=== PATIENT | male | born 1990 | race Caucasian/White ===

== ENCOUNTER 2017-01-09 15:19 | Inpatient (IN) | payer BC ==
[2017-01-09 20:00] VITALS: BMI 32.3
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
[2017-01-09] MEDS ORDERED: MAGNESIUM HYDROX 2400MG/30ML ORAL SUSPENSION 30 ML CUP PO PRN (21:31)
[2017-01-09] MEDS ORDERED: P-EPHED 60MG/TRIPROLIDI 2.5MG TABLET PO PRN (21:31)
[2017-01-09] MEDS ORDERED: MENTHOL/PHENOL 1 EACH UD MM PRN (21:31)
[2017-01-09] MEDS ORDERED: LOPERAMIDE HCL 2 MG CAPSULE PO PRN (21:31)
[2017-01-09] MEDS ORDERED: guaiFENesin/D-METHORPHAN HB 10 ML UNIT-DOSE CUPS PO PRN (21:31)
[2017-01-09] MEDS ORDERED: MAG HYDROX/AL HYDROX/SIMETH 30 ML UNIT-DOSE CUP PO PRN (21:31)
[2017-01-09] MEDS ORDERED: hydrOXYzine PAMOATE 50 MG CAPSULE (FP) PO PRN (21:31)
[2017-01-09] MEDS ORDERED: MAGNESIUM CITRATE 300 ML BOTTLE PO PRN (21:31)
[2017-01-09] MEDS ORDERED: NICOTINE POLACRILEX 2 MG GUM BC PRN (21:31)
[2017-01-09] MEDS ORDERED: TUBERCULIN PPD 5 TU/0.1ML VIAL ID ONE (22:42)
[2017-01-09] MEDS: diphenhydrAMINE HCL 50 MG CAPSULE PO PRN (23:07)
[2017-01-09] MEDS: THIAMINE HCL 100 MG TABLET (FP) PO SCH (23:07)
[2017-01-10 01:39] LABS: URINE APPEARANCE CLEAR; URINE BILIRUBIN NEGATIVE (NEGATIVE); URINE BLOOD NEGATIVE (NEGATIVE); URINE COLOR YELLOW; URINE GLUCOSE (UA) NEGATIVE (NEGATIVE); URINE KETONE NEGATIVE (NEGATIVE); URINE LEUK ESTERASE NEGATIVE (NEGATIVE); URINE NITRITE NEGATIVE (NEGATIVE); URINE UROBILINOGEN NEGATIVE mg/dL (0.2-1.0)
[2017-01-10 01:40] LABS: URINE PROTEIN 1+ (NEGATIVE)
[2017-01-10 01:48] LABS: URINE MUCUS RARE; URINE RBC 2 /hpf (0-3); URINE WBC <1 /hpf (3-5)
[2017-01-10] MEDS: ACETAMINOPHEN 325 MG TABLET (FP) PO PRN (06:12)
[2017-01-10] MEDS: METHADONE HCL 40 MG DISPERSABLE TABLET PO SCH (08:58)
[2017-01-10] MEDS: PRENATAL VITAMINS W/ FOLIC ACID TABLET (FP) PO SCH (09:00)
[2017-01-10] MEDS: NICOTINE 14 MG/24 HOURS TOPICAL PATCH TD SCH (09:01)
--- NOTE | 2017-01-10 09:53 | EKG ---
Test Reason : Blood Pressure : / mmHG Vent. Rate : 073 BPM Atrial Rate : 073 BPM P-R Int : 136 ms QRS Dur : 092 ms QT Int : 418 ms P-R-T Axes : 054 070 044 degrees QTc Int : 460 ms NORMAL SINUS RHYTHM NORMAL ECG NO PREVIOUS ECGS AVAILABLE Confirmed by MADELAINE BALDWIN, MUNA ([id number]) on 01/10/2017 9:53:30 AM Referred By: Confirmed By:MUNA BURKETT MD
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
--- NOTE | 2017-01-10 12:46 | PN ---
[facility] Progress Note Note: epigastric pain ekg nsr,normal ecg heart normal heart sound,s1,s2 lung cleat,no wheezing abdomen soft ,no distension no pain,no tenderness bowel suond active no calf tenderness impression epigastric pain r/o gerd treatment protonix 40 mgs po daily close moitoring
[2017-01-10] MEDS: IBUPROFEN 400 MG TABLET (FP) PO PRN (13:29)
[2017-01-10 13:35] LABS: MCH 29.4 pg (25.7-33.7); MCHC 33.3 g/dl (32.0-35.9); MEAN CELL VOLUME 88.2 fl (80-96); MEAN PLT VOLUME 9.3 fl (7.5-11.1); PLATELET COUNT 240 K/MM3 (134-434); RDW 12.9 % (11.9-15.9); WHITE BLOOD COUNT 6.1 K/mm3 (4.0-10.0)
[2017-01-10 14:20] LABS: ANION GAP 7 (8-16); CALCIUM 9.6 mg/dL (8.5-10.1); CO2 31 mmol/L (21-32); GLUCOSE,RANDOM 90 mg/dL (74-106)
[2017-01-10 14:23] LABS: ALK PHOS 91 U/L (45-117); BILIRUBIN,TOTAL 0.3 mg/dL (0.2-1.0); CREATININE 0.8 mg/dL (0.7-1.3); SGOT/AST 22 U/L (15-37); SGPT/ALT 34 U/L (12-78); TOT PROT 7.6 g/dl (6.4-8.2)
[2017-01-10] MEDS: PANTOPRAZOLE 40 MG TABLET (FP) PO SCH (14:29)
[2017-01-10] MEDS: risperiDONE 1 MG TABLET (FP) PO SCH ×2 (14:29→21:29)
[2017-01-10 14:33] LABS: HIV 1 & 2 AB NEGATIVE; HIV 1 AGp24 NEGATIVE
[2017-01-10] MEDS: DIVALPROEX NA *ER* EXTEND REL 500 MG TABLET.SA (FP) PO SCH (21:28)
[2017-01-10] MEDS: BENZTROPINE MESYLATE 1 MG TABLET (FP) PO SCH (21:28)
[2017-01-10] MEDS: THIAMINE HCL 100 MG TABLET (FP) PO SCH (21:29)
[2017-01-11] MEDS: risperiDONE 1 MG TABLET (FP) PO SCH ×3 (06:31→21:28)
[2017-01-11] MEDS: METHADONE HCL 40 MG DISPERSABLE TABLET PO SCH (06:31)
[2017-01-11] MEDS: PANTOPRAZOLE 40 MG TABLET (FP) PO SCH (10:16)
[2017-01-11] MEDS: BENZTROPINE MESYLATE 1 MG TABLET (FP) PO SCH (10:16)
[2017-01-11] MEDS: SERTRALINE HCL 25 MG TABLET (FP) PO SCH (10:16)
[2017-01-11] MEDS: PRENATAL VITAMINS W/ FOLIC ACID TABLET (FP) PO SCH (10:16)
[2017-01-11] MEDS: DEXTROAMPHETAMINE/AMPHETAMINE 10 MG CAP.ER.24H PO SCH (10:21)
[2017-01-11] MEDS: DIVALPROEX NA *ER* EXTEND REL 500 MG TABLET.SA (FP) PO SCH ×2 (10:21→21:28)
[2017-01-11] MEDS: NICOTINE 14 MG/24 HOURS TOPICAL PATCH TD SCH (10:22)
--- NOTE | 2017-01-11 13:43 | PN ---
[facility] Progress Note Note: patient requested to d/c gabby, reported he was taking it only when was on Haldol and was given scripts PRN will d/c
[2017-01-11] MEDS: THIAMINE HCL 100 MG TABLET (FP) PO SCH (21:29)
[2017-01-12] MEDS: METHADONE HCL 40 MG DISPERSABLE TABLET PO SCH (06:30)
[2017-01-12] MEDS: risperiDONE 1 MG TABLET (FP) PO SCH ×3 (06:31→21:29)
[2017-01-12] MEDS: PANTOPRAZOLE 40 MG TABLET (FP) PO SCH (10:16)
[2017-01-12] MEDS: SERTRALINE HCL 25 MG TABLET (FP) PO SCH (10:16)
[2017-01-12] MEDS: DIVALPROEX NA *ER* EXTEND REL 500 MG TABLET.SA (FP) PO SCH ×2 (10:16→21:29)
[2017-01-12] MEDS: PRENATAL VITAMINS W/ FOLIC ACID TABLET (FP) PO SCH (10:16)
[2017-01-12] MEDS: NICOTINE 14 MG/24 HOURS TOPICAL PATCH TD SCH (10:17)
[2017-01-12] MEDS: DEXTROAMPHETAMINE/AMPHETAMINE 10 MG CAP.ER.24H PO SCH (10:18)
[2017-01-12] MEDS: LORATADINE 10 MG TABLET PO SCH (14:37)
[2017-01-12] MEDS: THIAMINE HCL 100 MG TABLET (FP) PO SCH (21:30)
[2017-01-13] MEDS: risperiDONE 1 MG TABLET (FP) PO SCH ×3 (06:53→21:27)
[2017-01-13] MEDS: PRENATAL VITAMINS W/ FOLIC ACID TABLET (FP) PO SCH (10:11)
[2017-01-13] MEDS: SERTRALINE HCL 25 MG TABLET (FP) PO SCH (10:11)
[2017-01-13] MEDS: PANTOPRAZOLE 40 MG TABLET (FP) PO SCH (10:11)
[2017-01-13] MEDS: LORATADINE 10 MG TABLET PO SCH (10:11)
[2017-01-13] MEDS: DEXTROAMPHETAMINE/AMPHETAMINE 10 MG CAP.ER.24H PO SCH (10:12)
[2017-01-13] MEDS: DIVALPROEX NA *ER* EXTEND REL 500 MG TABLET.SA (FP) PO SCH ×2 (10:12→21:28)
[2017-01-13] MEDS: METHADONE HCL 40 MG DISPERSABLE TABLET PO SCH (10:12)
[2017-01-13] MEDS: NICOTINE 21 MG/24 HOURS TOPICAL PATCH TD SCH (10:12)
[2017-01-13] MEDS: IBUPROFEN 400 MG TABLET (FP) PO PRN (10:15)
[2017-01-13] MEDS: NICOTINE POLACRILEX 4 MG GUM BUC PRN (15:52)
[2017-01-13] MEDS: THIAMINE HCL 100 MG TABLET (FP) PO SCH (21:27)
[2017-01-13] MEDS: diphenhydrAMINE HCL 50 MG CAPSULE PO PRN (21:28)
[2017-01-14] MEDS: risperiDONE 1 MG TABLET (FP) PO SCH ×3 (06:46→22:20)
[2017-01-14] MEDS: DEXTROAMPHETAMINE/AMPHETAMINE 10 MG CAP.ER.24H PO SCH (10:08)
[2017-01-14] MEDS: LORATADINE 10 MG TABLET PO SCH (10:08)
[2017-01-14] MEDS: PRENATAL VITAMINS W/ FOLIC ACID TABLET (FP) PO SCH (10:08)
[2017-01-14] MEDS: PANTOPRAZOLE 40 MG TABLET (FP) PO SCH (10:08)
[2017-01-14] MEDS: SERTRALINE HCL 25 MG TABLET (FP) PO SCH (10:09)
[2017-01-14] MEDS: NICOTINE 21 MG/24 HOURS TOPICAL PATCH TD SCH (10:09)
[2017-01-14] MEDS: DIVALPROEX NA *ER* EXTEND REL 500 MG TABLET.SA (FP) PO SCH ×2 (10:09→22:20)
[2017-01-14] MEDS: METHADONE HCL 40 MG DISPERSABLE TABLET PO SCH (10:10)
[2017-01-14] MEDS: THIAMINE HCL 100 MG TABLET (FP) PO SCH (22:20)
[2017-01-15] MEDS: risperiDONE 1 MG TABLET (FP) PO SCH ×3 (06:37→22:44)
[2017-01-15] MEDS: PRENATAL VITAMINS W/ FOLIC ACID TABLET (FP) PO SCH (10:08)
[2017-01-15] MEDS: PANTOPRAZOLE 40 MG TABLET (FP) PO SCH (10:08)
[2017-01-15] MEDS: SERTRALINE HCL 25 MG TABLET (FP) PO SCH (10:08)
[2017-01-15] MEDS: LORATADINE 10 MG TABLET PO SCH (10:09)
[2017-01-15] MEDS: DIVALPROEX NA *ER* EXTEND REL 500 MG TABLET.SA (FP) PO SCH ×2 (10:09→22:44)
[2017-01-15] MEDS: METHADONE HCL 40 MG DISPERSABLE TABLET PO SCH (10:09)
[2017-01-15] MEDS: NICOTINE 21 MG/24 HOURS TOPICAL PATCH TD SCH (10:11)
[2017-01-15] MEDS: DEXTROAMPHETAMINE/AMPHETAMINE 10 MG CAP.ER.24H PO SCH (10:12)
[2017-01-15] MEDS: THIAMINE HCL 100 MG TABLET (FP) PO SCH (22:44)
[2017-01-16] MEDS: risperiDONE 1 MG TABLET (FP) PO SCH ×3 (07:54→21:42)
[2017-01-16] MEDS: METHADONE HCL 40 MG DISPERSABLE TABLET PO SCH (10:05)
[2017-01-16] MEDS: DEXTROAMPHETAMINE/AMPHETAMINE 10 MG CAP.ER.24H PO SCH (10:07)
[2017-01-16] MEDS: PRENATAL VITAMINS W/ FOLIC ACID TABLET (FP) PO SCH (10:07)
[2017-01-16] MEDS: PANTOPRAZOLE 40 MG TABLET (FP) PO SCH (10:07)
[2017-01-16] MEDS: SERTRALINE HCL 25 MG TABLET (FP) PO SCH (10:07)
[2017-01-16] MEDS: LORATADINE 10 MG TABLET PO SCH (10:07)
[2017-01-16] MEDS: DIVALPROEX NA *ER* EXTEND REL 500 MG TABLET.SA (FP) PO SCH ×2 (10:07→21:42)
[2017-01-16] MEDS: NICOTINE 21 MG/24 HOURS TOPICAL PATCH TD SCH (10:08)
--- NOTE | 2017-01-16 13:13 | PN ---
[facility] Progress Note Note: patient reports abscess and painful cracked tooth, does not want to continue depakote which was prescribed by psychaitrist, has not had seizure x1 year. a/p : tooth infection, to discusse depakote with psychiatrist, needs to see dentist if pain not controlled. naprsyn, neurontin for pain atc, protonix fo stomach. risk of seziures discussed with patien tif he stops depakote agress to start neurontin and titirate dose.
[2017-01-16] MEDS ORDERED: AMOXICILLIN 500 MG CAPSULE (FP) PO ONE (13:33)
[2017-01-16] MEDS ORDERED: NAPROXEN 500 MG TABLET (FP) PO SCH (13:35)
[2017-01-16] MEDS: NICOTINE POLACRILEX 4 MG GUM BUC PRN (13:39)
[2017-01-16] MEDS ORDERED: GABAPENTIN 100 MG CAPSULE (FP) PO SCH (14:00)
[2017-01-16] MEDS: THIAMINE HCL 100 MG TABLET (FP) PO SCH (21:42)
[2017-01-16] MEDS ORDERED: AMOXICILLIN 500 MG CAPSULE (FP) PO SCH (22:00)
[2017-01-17] MEDS: risperiDONE 1 MG TABLET (FP) PO SCH ×3 (06:25→21:32)
[2017-01-17] MEDS: METHADONE HCL 40 MG DISPERSABLE TABLET PO SCH (09:56)
[2017-01-17] MEDS: LORATADINE 10 MG TABLET PO SCH (09:57)
[2017-01-17] MEDS: PANTOPRAZOLE 40 MG TABLET (FP) PO SCH (09:57)
[2017-01-17] MEDS: SERTRALINE HCL 25 MG TABLET (FP) PO SCH (09:57)
[2017-01-17] MEDS: PRENATAL VITAMINS W/ FOLIC ACID TABLET (FP) PO SCH (09:57)
[2017-01-17] MEDS: NICOTINE 21 MG/24 HOURS TOPICAL PATCH TD SCH (09:57)
[2017-01-17] MEDS: DIVALPROEX NA *ER* EXTEND REL 500 MG TABLET.SA (FP) PO SCH ×2 (09:57→21:32)
--- NOTE | 2017-01-17 11:31 | PN ---
[facility] Progress Note Note: no side-effects reported by patient from adderall, will r/n, continue to monitor progress.
[2017-01-17] MEDS: DEXTROAMPHETAMINE/AMPHETAMINE 10 MG CAP.ER.24H PO SCH (11:54)
[2017-01-17] MEDS: THIAMINE HCL 100 MG TABLET (FP) PO SCH (21:32)
[2017-01-18] MEDS: risperiDONE 1 MG TABLET (FP) PO SCH ×3 (06:45→22:49)
[2017-01-18] MEDS: PRENATAL VITAMINS W/ FOLIC ACID TABLET (FP) PO SCH (09:46)
[2017-01-18] MEDS: SERTRALINE HCL 25 MG TABLET (FP) PO SCH (09:46)
[2017-01-18] MEDS: METHADONE HCL 40 MG DISPERSABLE TABLET PO SCH (09:46)
[2017-01-18] MEDS: LORATADINE 10 MG TABLET PO SCH (09:46)
[2017-01-18] MEDS: PANTOPRAZOLE 40 MG TABLET (FP) PO SCH (09:46)
[2017-01-18] MEDS: DIVALPROEX NA *ER* EXTEND REL 500 MG TABLET.SA (FP) PO SCH ×2 (09:47→22:17)
[2017-01-18] MEDS: NICOTINE 21 MG/24 HOURS TOPICAL PATCH TD SCH (09:47)
[2017-01-18] MEDS: DEXTROAMPHETAMINE/AMPHETAMINE 10 MG CAP.ER.24H PO SCH (09:49)
[2017-01-18] MEDS ORDERED: DEXTROAMPHETAMINE/AMPHETAMINE 10 MG CAP.ER.24H PO SCH (10:00)
[2017-01-18] MEDS: THIAMINE HCL 100 MG TABLET (FP) PO SCH (23:10)
[2017-01-19] MEDS: risperiDONE 1 MG TABLET (FP) PO SCH ×3 (07:06→21:38)
[2017-01-19] MEDS: PRENATAL VITAMINS W/ FOLIC ACID TABLET (FP) PO SCH (10:08)
[2017-01-19] MEDS: PANTOPRAZOLE 40 MG TABLET (FP) PO SCH (10:08)
[2017-01-19] MEDS: NICOTINE 21 MG/24 HOURS TOPICAL PATCH TD SCH (10:08)
[2017-01-19] MEDS: SERTRALINE HCL 25 MG TABLET (FP) PO SCH (10:08)
[2017-01-19] MEDS: METHADONE HCL 40 MG DISPERSABLE TABLET PO SCH (10:08)
[2017-01-19] MEDS: LORATADINE 10 MG TABLET PO SCH (10:08)
[2017-01-19] MEDS: DIVALPROEX NA *ER* EXTEND REL 500 MG TABLET.SA (FP) PO SCH ×2 (10:09→21:38)
[2017-01-19] MEDS: DEXTROAMPHETAMINE/AMPHETAMINE 10 MG CAP.ER.24H PO SCH (10:09)
[2017-01-19] MEDS: THIAMINE HCL 100 MG TABLET (FP) PO SCH (21:38)
[2017-01-20] MEDS: risperiDONE 1 MG TABLET (FP) PO SCH ×3 (06:39→21:46)
[2017-01-20] MEDS: ACETAMINOPHEN 325 MG TABLET (FP) PO PRN (06:40)
[2017-01-20] MEDS: METHADONE HCL 40 MG DISPERSABLE TABLET PO SCH (10:06)
[2017-01-20] MEDS: PRENATAL VITAMINS W/ FOLIC ACID TABLET (FP) PO SCH (10:07)
[2017-01-20] MEDS: LORATADINE 10 MG TABLET PO SCH (10:07)
[2017-01-20] MEDS: SERTRALINE HCL 25 MG TABLET (FP) PO SCH (10:07)
[2017-01-20] MEDS: DIVALPROEX NA *ER* EXTEND REL 500 MG TABLET.SA (FP) PO SCH ×2 (10:07→21:46)
[2017-01-20] MEDS: DEXTROAMPHETAMINE/AMPHETAMINE 10 MG CAP.ER.24H PO SCH (10:07)
[2017-01-20] MEDS: PANTOPRAZOLE 40 MG TABLET (FP) PO SCH (10:07)
[2017-01-20] MEDS: NICOTINE 21 MG/24 HOURS TOPICAL PATCH TD SCH (10:08)
[2017-01-20] MEDS: THIAMINE HCL 100 MG TABLET (FP) PO SCH (21:46)
[2017-01-21] MEDS: risperiDONE 1 MG TABLET (FP) PO SCH ×3 (07:00→22:04)
[2017-01-21] MEDS: METHADONE HCL 40 MG DISPERSABLE TABLET PO SCH (10:07)
[2017-01-21] MEDS: DEXTROAMPHETAMINE/AMPHETAMINE 10 MG CAP.ER.24H PO SCH (10:08)
[2017-01-21] MEDS: PANTOPRAZOLE 40 MG TABLET (FP) PO SCH (10:08)
[2017-01-21] MEDS: PRENATAL VITAMINS W/ FOLIC ACID TABLET (FP) PO SCH (10:08)
[2017-01-21] MEDS: LORATADINE 10 MG TABLET PO SCH (10:08)
[2017-01-21] MEDS: SERTRALINE HCL 25 MG TABLET (FP) PO SCH (10:08)
[2017-01-21] MEDS: DIVALPROEX NA *ER* EXTEND REL 500 MG TABLET.SA (FP) PO SCH ×2 (10:09→22:04)
[2017-01-21] MEDS: NICOTINE 21 MG/24 HOURS TOPICAL PATCH TD SCH (10:09)
[2017-01-21] MEDS: THIAMINE HCL 100 MG TABLET (FP) PO SCH (22:05)
[2017-01-22] MEDS: risperiDONE 1 MG TABLET (FP) PO SCH ×3 (06:31→21:28)
[2017-01-22] MEDS: DIVALPROEX NA *ER* EXTEND REL 500 MG TABLET.SA (FP) PO SCH ×2 (10:03→21:28)
[2017-01-22] MEDS: METHADONE HCL 40 MG DISPERSABLE TABLET PO SCH (10:03)
[2017-01-22] MEDS: DEXTROAMPHETAMINE/AMPHETAMINE 10 MG CAP.ER.24H PO SCH (10:03)
[2017-01-22] MEDS: LORATADINE 10 MG TABLET PO SCH (10:03)
[2017-01-22] MEDS: SERTRALINE HCL 25 MG TABLET (FP) PO SCH (10:03)
[2017-01-22] MEDS: PANTOPRAZOLE 40 MG TABLET (FP) PO SCH (10:03)
[2017-01-22] MEDS: PRENATAL VITAMINS W/ FOLIC ACID TABLET (FP) PO SCH (10:04)
[2017-01-22] MEDS: NICOTINE 21 MG/24 HOURS TOPICAL PATCH TD SCH (10:04)
[2017-01-22] MEDS: THIAMINE HCL 100 MG TABLET (FP) PO SCH (21:28)
[2017-01-23] MEDS: risperiDONE 1 MG TABLET (FP) PO SCH ×3 (06:38→21:44)
[2017-01-23] MEDS: DIVALPROEX NA *ER* EXTEND REL 500 MG TABLET.SA (FP) PO SCH ×2 (10:24→21:44)
[2017-01-23] MEDS: PRENATAL VITAMINS W/ FOLIC ACID TABLET (FP) PO SCH (10:24)
[2017-01-23] MEDS: PANTOPRAZOLE 40 MG TABLET (FP) PO SCH (10:24)
[2017-01-23] MEDS: SERTRALINE HCL 25 MG TABLET (FP) PO SCH (10:25)
[2017-01-23] MEDS: LORATADINE 10 MG TABLET PO SCH (10:25)
[2017-01-23] MEDS: NICOTINE 21 MG/24 HOURS TOPICAL PATCH TD SCH (10:25)
[2017-01-23] MEDS: METHADONE HCL 40 MG DISPERSABLE TABLET PO SCH (10:25)
[2017-01-23] MEDS: DEXTROAMPHETAMINE/AMPHETAMINE 10 MG CAP.ER.24H PO SCH (10:26)
[2017-01-23] MEDS: THIAMINE HCL 100 MG TABLET (FP) PO SCH (21:44)
[2017-01-24] MEDS: ACETAMINOPHEN 325 MG TABLET (FP) PO PRN (06:18)
[2017-01-24] MEDS: risperiDONE 1 MG TABLET (FP) PO SCH ×3 (06:18→21:55)
[2017-01-24] MEDS: METHADONE HCL 40 MG DISPERSABLE TABLET PO SCH (10:15)
[2017-01-24] MEDS: NICOTINE 21 MG/24 HOURS TOPICAL PATCH TD SCH (10:17)
[2017-01-24] MEDS: DIVALPROEX NA *ER* EXTEND REL 500 MG TABLET.SA (FP) PO SCH ×2 (10:17→21:54)
[2017-01-24] MEDS: LORATADINE 10 MG TABLET PO SCH (10:17)
[2017-01-24] MEDS: SERTRALINE HCL 25 MG TABLET (FP) PO SCH (10:17)
[2017-01-24] MEDS: PANTOPRAZOLE 40 MG TABLET (FP) PO SCH (10:17)
[2017-01-24] MEDS: PRENATAL VITAMINS W/ FOLIC ACID TABLET (FP) PO SCH (10:17)
[2017-01-24] MEDS: DEXTROAMPHETAMINE/AMPHETAMINE 10 MG CAP.ER.24H PO SCH (10:18)
[2017-01-24] MEDS: THIAMINE HCL 100 MG TABLET (FP) PO SCH (21:55)
[2017-01-25] MEDS: risperiDONE 1 MG TABLET (FP) PO SCH ×3 (06:21→21:15)
[2017-01-25] MEDS: METHADONE HCL 40 MG DISPERSABLE TABLET PO SCH (10:02)
[2017-01-25] MEDS: DIVALPROEX NA *ER* EXTEND REL 500 MG TABLET.SA (FP) PO SCH ×2 (10:03→21:15)
[2017-01-25] MEDS: PRENATAL VITAMINS W/ FOLIC ACID TABLET (FP) PO SCH (10:04)
[2017-01-25] MEDS: LORATADINE 10 MG TABLET PO SCH (10:04)
[2017-01-25] MEDS: SERTRALINE HCL 25 MG TABLET (FP) PO SCH (10:04)
[2017-01-25] MEDS: PANTOPRAZOLE 40 MG TABLET (FP) PO SCH (10:04)
[2017-01-25] MEDS: DEXTROAMPHETAMINE/AMPHETAMINE 10 MG CAP.ER.24H PO SCH (10:05)
[2017-01-25] MEDS: NICOTINE 21 MG/24 HOURS TOPICAL PATCH TD SCH (10:06)
[2017-01-25] MEDS: THIAMINE HCL 100 MG TABLET (FP) PO SCH (21:15)
[2017-01-26] MEDS: risperiDONE 1 MG TABLET (FP) PO SCH ×3 (06:16→21:13)
[2017-01-26] MEDS: METHADONE HCL 40 MG DISPERSABLE TABLET PO SCH (09:49)
[2017-01-26] MEDS: PRENATAL VITAMINS W/ FOLIC ACID TABLET (FP) PO SCH (09:49)
[2017-01-26] MEDS: PANTOPRAZOLE 40 MG TABLET (FP) PO SCH (09:49)
[2017-01-26] MEDS: SERTRALINE HCL 25 MG TABLET (FP) PO SCH (09:49)
[2017-01-26] MEDS: LORATADINE 10 MG TABLET PO SCH (09:49)
[2017-01-26] MEDS: DEXTROAMPHETAMINE/AMPHETAMINE 10 MG CAP.ER.24H PO SCH (09:53)
[2017-01-26] MEDS: NICOTINE 21 MG/24 HOURS TOPICAL PATCH TD SCH (10:50)
[2017-01-26] MEDS: DIVALPROEX NA *ER* EXTEND REL 500 MG TABLET.SA (FP) PO SCH ×2 (10:50→21:14)
[2017-01-26] MEDS ORDERED: BENZTROPINE MESYLATE 1 MG TABLET (FP) PO ONE (14:35)
--- NOTE | 2017-01-26 14:38 | PN ---
Psychiatric Progress Note Vital Signs: Vital Signs Period Temp Pulse Resp BP Sys/Thomas Pulse Ox Last 24 Hr 97.5 F 69 16-20 134/79 Date of Session: 01/26/17 Chief Complaint:: progress update. HPI: Patient is addressing opioid, cocaine dependence comorbid PTSD, ADD, Schizoaffective Disorder. ROS: Seizure disorder medically managed. Current Medications: Active Medications Generic Name Dose Route Start Last Admin Trade Name Freq PRN Reason Stop Dose Admin Acetaminophen 650 mg 01/09/17 21:31 01/24/17 06:18 Tylenol - PO 650 mg Q4H PRN Administration PAIN Al Hydroxide/Mg Hydroxide 30 ml 01/09/17 21:31 01/10/17 09:25 Mylanta Oral Suspension - PO 30 ml Q6H PRN Administration DYSPEPSIA Amphetamine/Dextroamphetamine 10 mg 01/25/17 10:00 01/26/17 09:53 Adderall Xr - PO 02/01/17 09:59 10 mg DAILY MARIE Administration Benztropine Mesylate 0.5 mg 01/26/17 14:24 Cogentin - PO 01/26/17 14:25 ONCE ONE Diphenhydramine HCl 50 mg 01/09/17 21:31 01/13/17 21:28 Benadryl - PO 50 mg HSMR1 PRN Administration INSOMNIA Divalproex Sodium 500 mg 01/10/17 22:00 01/26/17 10:50 Depakote *Er* - PO Not Given BID MARIE Eucalyptus/Menthol/Phenol/Sorbitol 1 each 01/09/17 21:31 Cepastat Lozenge - MM Q4H PRN SORE THROAT Guaifenesin 10 ml 01/09/17 21:31 Robitussin Dm - PO Q6H PRN COUGH Hydroxyzine Pamoate 50 mg 01/09/17 21:31 Vistaril - PO Q4H PRN AGITATION Loperamide HCl 4 mg 01/09/17 21:31 Imodium - PO Q6H PRN DIARRHEA Loratadine 10 mg 01/12/17 11:30 01/26/17 09:49 Claritin - PO 10 mg DAILY MARIE Administration Magnesium Citrate 300 ml 01/09/17 21:31 Citroma - PO Q48H PRN CONSTIPATION Magnesium Hydroxide 30 ml 01/09/17 21:31 Milk Of Magnesia - PO DAILY PRN CONSTIPATION Methadone HCl 80 mg 01/16/17 10:00 01/26/17 09:49 Dolophine - PO 80 mg DAILY MARIE Administration Nicotine 21 mg 01/12/17 11:27 01/26/17 10:50 Nicoderm Patch - TD 21 mg DAILY MARIE Administration Nicotine Polacrilex 4 mg 01/12/17 11:27 01/16/17 13:39 Nicorette Gum - BUC 4 mg Q2H PRN Administration NICOTINE REPLACEMENT RX Pantoprazole Sodium 40 mg 01/10/17 13:00 01/26/17 09:49 Protonix - PO 40 mg DAILY MARIE Administration Multivit/Folic Acid/Iron 1 tab 01/10/17 10:00 01/26/17 09:49 Vitamins (Sjr) - PO 1 tab DAILY MARIE Administration Risperidone 1 mg 01/26/17 22:00 Risperdal - PO BID MARIE Sertraline HCl 25 mg 01/11/17 10:00 01/26/17 09:49 Zoloft - PO 25 mg DAILY MARIE Administration Thiamine HCl 100 mg 01/09/17 22:00 01/25/17 21:15 Vitamin B1 - PO Not Given HS MARIE Current Side Effect: Yes (restless) Lab tests ordered: No Lab tests reviewed: Yes Provider note:: Patient reports that he is not taking Risperdal 3 times a day as was directed and only 2 times, he reports he restless, having muscualr tension on his shoulders and legs and anxious when as soon as he takes am pills , medications reviewed with the patient, will add cogentin 0.5 mg po stat, and bid, decrease risperdal to 1 mg po bid, psychoeducation and supports provided, continue to monitor progress. Total face to face time:: 25 Mental Status Exam - Mental Status Exam Alert and Oriented to: Time, Place, Person Cognitive Function: Good Patient Appearance: Well Groomed Mood: Anxious Affect: Mood Congruent Patient Behavior: Restless, Cooperative Speech Pattern: Appropriate Voice Loudness: Normal Thought Process: Goal Oriented Thought Disorder: Not Present Hallucinations: Denies Suicidal Ideation: Denies Homicidal Ideation: Denies Insight/Judgement: Fair Sleep: Fair Appetite: Fair Muscle strength/Tone: Normal Gait/Station: Normal Psychiatric Treatment Plan - Problem List (1) Cocaine dependence Current Visit: Yes Qualifiers: Substance use status: uncomplicated Qualified Code(s): F14.20 - Cocaine dependence, uncomplicated; F14.20 - Cocaine dependence, uncomplicated; F14.20 - Cocaine dependence, uncomplicated (2) Opioid dependence on agonist therapy Current Visit: Yes (3) ADHD (attention deficit hyperactivity disorder) Current Visit: No (4) PTSD (post-traumatic stress disorder) Current Visit: No (5) Schizoaffective disorder Current Visit: No (6) Seizure disorder Current Visit: No (7) Epileptic Current Visit: No Qualifiers: Epilepsy type: unspecified (8) Sedative/hypnotic withdrawal without complication Current Visit: Yes
[2017-01-26] MEDS: THIAMINE HCL 100 MG TABLET (FP) PO SCH (21:14)
[2017-01-26] MEDS: BENZTROPINE MESYLATE 1 MG TABLET (FP) PO SCH (21:14)
[2017-01-27] MEDS: METHADONE HCL 40 MG DISPERSABLE TABLET PO SCH (10:19)
[2017-01-27] MEDS: PANTOPRAZOLE 40 MG TABLET (FP) PO SCH (10:20)
[2017-01-27] MEDS: PRENATAL VITAMINS W/ FOLIC ACID TABLET (FP) PO SCH (10:20)
[2017-01-27] MEDS: NICOTINE 21 MG/24 HOURS TOPICAL PATCH TD SCH (10:20)
[2017-01-27] MEDS: BENZTROPINE MESYLATE 1 MG TABLET (FP) PO SCH ×2 (10:20→21:30)
[2017-01-27] MEDS: DEXTROAMPHETAMINE/AMPHETAMINE 10 MG CAP.ER.24H PO SCH (10:20)
[2017-01-27] MEDS: SERTRALINE HCL 25 MG TABLET (FP) PO SCH (10:20)
[2017-01-27] MEDS: risperiDONE 1 MG TABLET (FP) PO SCH ×2 (10:20→21:30)
[2017-01-27] MEDS: DIVALPROEX NA *ER* EXTEND REL 500 MG TABLET.SA (FP) PO SCH ×2 (10:21→21:30)
[2017-01-27] MEDS: LORATADINE 10 MG TABLET PO SCH (10:21)
[2017-01-27] MEDS: THIAMINE HCL 100 MG TABLET (FP) PO SCH (21:31)
[2017-01-28] MEDS: risperiDONE 1 MG TABLET (FP) PO SCH ×2 (10:08→21:01)
[2017-01-28] MEDS: PANTOPRAZOLE 40 MG TABLET (FP) PO SCH (10:08)
[2017-01-28] MEDS: DIVALPROEX NA *ER* EXTEND REL 500 MG TABLET.SA (FP) PO SCH ×2 (10:09→21:01)
[2017-01-28] MEDS: NICOTINE 21 MG/24 HOURS TOPICAL PATCH TD SCH (10:09)
[2017-01-28] MEDS: BENZTROPINE MESYLATE 1 MG TABLET (FP) PO SCH ×2 (10:09→21:01)
[2017-01-28] MEDS: SERTRALINE HCL 25 MG TABLET (FP) PO SCH (10:09)
[2017-01-28] MEDS: LORATADINE 10 MG TABLET PO SCH (10:09)
[2017-01-28] MEDS: DEXTROAMPHETAMINE/AMPHETAMINE 10 MG CAP.ER.24H PO SCH (10:09)
[2017-01-28] MEDS: METHADONE HCL 40 MG DISPERSABLE TABLET PO SCH (10:09)
[2017-01-28] MEDS: PRENATAL VITAMINS W/ FOLIC ACID TABLET (FP) PO SCH (10:10)
[2017-01-28] MEDS: THIAMINE HCL 100 MG TABLET (FP) PO SCH (21:01)
[2017-01-29 06:41] VITALS: BP 115/75; PULSE 65; TEMP 97.9
[2017-01-29] MEDS: SERTRALINE HCL 25 MG TABLET (FP) PO SCH (09:41)
[2017-01-29] MEDS: PANTOPRAZOLE 40 MG TABLET (FP) PO SCH (09:41)
[2017-01-29] MEDS: PRENATAL VITAMINS W/ FOLIC ACID TABLET (FP) PO SCH (09:41)
[2017-01-29] MEDS: METHADONE HCL 40 MG DISPERSABLE TABLET PO SCH (09:41)
[2017-01-29] MEDS: LORATADINE 10 MG TABLET PO SCH (09:41)
[2017-01-29] MEDS: risperiDONE 1 MG TABLET (FP) PO SCH (09:41)
[2017-01-29] MEDS: BENZTROPINE MESYLATE 1 MG TABLET (FP) PO SCH (09:41)
[2017-01-29] MEDS: DEXTROAMPHETAMINE/AMPHETAMINE 10 MG CAP.ER.24H PO SCH (09:41)
[2017-01-29] MEDS: NICOTINE 21 MG/24 HOURS TOPICAL PATCH TD SCH (09:42)
[2017-01-29] MEDS: DIVALPROEX NA *ER* EXTEND REL 500 MG TABLET.SA (FP) PO SCH (09:42)
--- NOTE | 2017-01-29 10:00 | PN ---
Psychiatric Progress Note Vital Signs: Vital Signs Period Temp Pulse Resp BP Sys/Thomas Pulse Ox Last 24 Hr 97.9 F 65 16-20 115/75 Date of Session: 01/29/17 Chief Complaint:: discharge visit HPI: Patient is addressing opioid, cocaine dependence comorbid PTSD, ADD, Schizoaffective Disorder. ROS: Seizure disorder medically managed. Current Medications: Active Medications Generic Name Dose Route Start Last Admin Trade Name Freq PRN Reason Stop Dose Admin Acetaminophen 650 mg 01/09/17 21:31 01/24/17 06:18 Tylenol - PO 650 mg Q4H PRN Administration PAIN Al Hydroxide/Mg Hydroxide 30 ml 01/09/17 21:31 01/10/17 09:25 Mylanta Oral Suspension - PO 30 ml Q6H PRN Administration DYSPEPSIA Amphetamine/Dextroamphetamine 10 mg 01/25/17 10:00 01/29/17 09:41 Adderall Xr - PO 02/01/17 09:59 10 mg DAILY MARIE Administration Benztropine Mesylate 0.5 mg 01/26/17 22:00 01/29/17 09:41 Cogentin - PO 0.5 mg BID MARIE Administration Diphenhydramine HCl 50 mg 01/09/17 21:31 01/13/17 21:28 Benadryl - PO 50 mg HSMR1 PRN Administration INSOMNIA Divalproex Sodium 500 mg 01/10/17 22:00 01/29/17 09:42 Depakote *Er* - PO Not Given BID MARIE Eucalyptus/Menthol/Phenol/Sorbitol 1 each 01/09/17 21:31 Cepastat Lozenge - MM Q4H PRN SORE THROAT Guaifenesin 10 ml 01/09/17 21:31 Robitussin Dm - PO Q6H PRN COUGH Hydroxyzine Pamoate 50 mg 01/09/17 21:31 01/28/17 22:40 Vistaril - PO 50 mg Q4H PRN Administration AGITATION Loperamide HCl 4 mg 01/09/17 21:31 Imodium - PO Q6H PRN DIARRHEA Loratadine 10 mg 01/12/17 11:30 01/29/17 09:41 Claritin - PO 10 mg DAILY MARIE Administration Magnesium Citrate 300 ml 01/09/17 21:31 Citroma - PO Q48H PRN CONSTIPATION Magnesium Hydroxide 30 ml 01/09/17 21:31 Milk Of Magnesia - PO DAILY PRN CONSTIPATION Methadone HCl 80 mg 01/16/17 10:00 01/29/17 09:41 Dolophine - PO 80 mg DAILY MARIE Administration Nicotine 21 mg 01/12/17 11:27 01/29/17 09:42 Nicoderm Patch - TD Not Given DAILY MARIE Nicotine Polacrilex 4 mg 01/12/17 11:27 01/16/17 13:39 Nicorette Gum - BUC 4 mg Q2H PRN Administration NICOTINE REPLACEMENT RX Pantoprazole Sodium 40 mg 01/10/17 13:00 01/29/17 09:41 Protonix - PO 40 mg DAILY MARIE Administration Multivit/Folic Acid/Iron 1 tab 01/10/17 10:00 01/29/17 09:41 Vitamins (Sjr) - PO 1 tab DAILY MARIE Administration Risperidone 1 mg 01/26/17 22:00 01/29/17 09:41 Risperdal - PO 1 mg BID MARIE Administration Sertraline HCl 25 mg 01/11/17 10:00 01/29/17 09:41 Zoloft - PO 25 mg DAILY MARIE Administration Thiamine HCl 100 mg 01/09/17 22:00 01/28/17 21:01 Vitamin B1 - PO Not Given HS MARIE Current Side Effect: No Lab tests ordered: No Lab tests reviewed: Yes Provider note:: Patient has completed today his treatment and met his goals, will continue to address his issues at [facility]/ [address], he gained insights into importance of chaning attitudes for the utilization of supports to prevent relapses.Patient respondede well to medication management, patient reports that Cogentin is effective, scripts to Risperdal, Cogentin and Zoloft provided, patient is stable for discharge. Total face to face time:: 20 Mental Status Exam - Mental Status Exam Alert and Oriented to: Time, Place, Person Cognitive Function: Good Patient Appearance: Well Groomed Mood: Hopeful Affect: Appropriate, Mood Congruent Patient Behavior: Appropriate, Cooperative Speech Pattern: Clear, Appropriate Voice Loudness: Normal Thought Process: Intact, Goal Oriented Thought Disorder: Not Present Hallucinations: Denies Suicidal Ideation: Denies Homicidal Ideation: Denies Insight/Judgement: Fair Sleep: Fair Appetite: Good Muscle strength/Tone: Normal Gait/Station: Normal Psychiatric Treatment Plan - Problem List (1) Cocaine dependence Current Visit: Yes Qualifiers: Substance use status: uncomplicated Qualified Code(s): F14.20 - Cocaine dependence, uncomplicated; F14.20 - Cocaine dependence, uncomplicated; F14.20 - Cocaine dependence, uncomplicated (2) Opioid dependence on agonist therapy Current Visit: Yes (3) ADHD (attention deficit hyperactivity disorder) Current Visit: No (4) PTSD (post-traumatic stress disorder) Current Visit: No (5) Schizoaffective disorder Current Visit: No (6) Seizure disorder Current Visit: No (7) Epileptic Current Visit: No Qualifiers: Epilepsy type: unspecified (8) Sedative/hypnotic withdrawal without complication Current Visit: Yes
== END 2017-01-29 10:50 | disposition home or self-care (01) | DRG 772 ==
LOC: YASAS 15:19 → Y5N 21:52
PROVIDERS: ADMIT Psychiatry & Neurology Psychiatry; ATTEND Psychiatry & Neurology Psychiatry
PROC: HZ42ZZZ Group Counseling for Substance Abuse Treatment, Cognitive-Behavioral (ICD-10-PCS; principal; 2017-01-09)
DX: F13.20 Sedative, hypnotic or anxiolytic dependence, uncomplicated (principal); F11.20 Opioid dependence, uncomplicated; F14.20 Cocaine dependence, uncomplicated; F17.210 Nicotine dependence, cigarettes, uncomplicated; F90.9 Attention-deficit hyperactivity disorder, unspecified type; F43.10 Post-traumatic stress disorder, unspecified; F25.9 Schizoaffective disorder, unspecified; G40.909 Epilepsy, unspecified, not intractable, without status epilepticus; R10.13 Epigastric pain; Z91.013 Allergy to seafood; Z88.8 Allergy status to other drugs, medicaments and biological substances
CPT/HCPCS: 36415; 80053; 81003; 81015; 85027; 86593; 86803; 87389; 93005; 93010; J2794

== ENCOUNTER 2017-09-11 15:10 | Inpatient (IN) | payer BC ==
[2017-09-11 18:39] VITALS: BMI 29.1
--- NOTE | 2017-09-11 20:59 | HP ---
CIWA Score - CIWA Score Nausea/Vomitin-Mild Nausea/No Vomiting Muscle Tremors: 3 Anxiety: 4-Mod. Anxious/Guarded Agitation: 4-Moderately Restless Paroxysmal Sweats: 3 Orientation: 3-Disoriented Date>2 days Tacttile Disturbances: 0-None Auditory Disturbances: 0-None Visual Disturbances: 0-None Headache: 4-Moderately Severe CIWA-Ar Total Score: 22 Admission ROS S - HPI Chief Complaint: C/O WITHDRAWAL SX'S R/T HEROIN AND XANAX DEPENDENCE. Allergies/Adverse Reactions: Allergies Allergy/AdvReac Type Severity Reaction Status Date / Time Barbiturates Allergy Severe Swelling Verified 01/09/17 21:54 Fish Containing Products Allergy Severe Hives Verified 01/09/17 21:54 History of Present Illness: 26 Y.O. MALE WITH LONG HX/O POLYSUBSTANCE ABUSE HERE FOR XANAX DETOX. CLIENT IS PRESENTLY ON MMTP AT [facility] TODAY 80 MG. PENDING VERIFICATION. CLIENT IS KNOWN TO THIS PROGRAM. REFERRED TODAY BY HIS OTP COUNSELOR. REPORTS LONGEST CLEAN TIME 1 YEARS SELF SUSTAINED. DENIES PAST PRESENT SI/HI AND A/V HALLUCINATIONS. PMHX: SEIZURE D/O MENTAL HEALTH: PTSD, ADHD, BIPOLAR, ANXIETY AND DEPRESSION. Exam Limitations: No Limitations - Ebola screening Have you traveled outside of the country in the last 21 days: No Have you had contact with anyone from an Ebola affected area: No Have you been sick,other than usual withdrawal symptoms: No Do you have a fever: No - Review of Systems Constitutional: Chills, Loss of Appetite, Malaise, Night Sweats, Changes in sleep EENT: reports: Nose Congestion (WITH RUNNY NOSE), Other (TOOTH ACHE) Respiratory: reports: No Symptoms reported Cardiac: reports: No Symptoms Reported GI: reports: Nausea, Poor Appetite : reports: No Symptoms Reported Musculoskeletal: reports: No Symptoms Reported Integumentary: reports: No Symptoms Reported Neuro: reports: Seizure (6 MONTHS AGO;) Endocrine: reports: No Symptoms Reported Hematology: reports: No Symptoms Reported Psychiatric: reports: Anxious, Depressed Other Systems: Reviewed and Negative Patient History - Patient Medical History Hx Anemia: No Hx Asthma: No Hx Chronic Obstructive Pulmonary Disease (COPD): No Hx Cancer: No Hx Cardiac Disorders: No Hx Congestive Heart Failure: No Hx Hypertension: No Hx Hypercholesterolemia: No Hx Pacemaker: No HX Cerebrovascular Accident: No Hx Seizures: Yes (LAST EPISODE 6 MONTHS AGO) Hx Dementia: No Hx Diabetes: No Hx Gastrointestinal Disorders: No Hx Liver Disease: No Hx Genitourinary Disorders: No Hx Sexually Transmitted Disorders: No Hx Renal Disease (ESRD): No Hx Thyroid Disease: No Hx Human Immunodeficiency Virus (HIV): No Hx Hepatitis C: No (neg) Hx Depression: Yes Hx Suicide Attempt: No Hx Bipolar Disorder: Yes Hx Schizophrenia: Yes Other Medical History: ANXIETY - Patient Surgical History Past Surgical History: No Hx Neurologic Surgery: No Hx Cataract Extraction: No Hx Cardiac Surgery: No Hx Lung Surgery: No Hx Breast Surgery: No Hx Breast Biopsy: No Hx Abdominal Surgery: No Hx Appendectomy: No Hx Cholecystectomy: No Hx Genitourinary Surgery: No Hx Section: No Hx Orthopedic Surgery: No Anesthesia Reaction: No - PPD History Previous Implant?: Yes Documented Results: Negative w/proof Implanted On Prior [facility] Admission?: Yes Date: 01/11/17 Results: 0MM PPD to be Administered?: No - Smoking Cessation Smoking history: Current every day smoker Have you smoked in the past 12 months: Yes Aproximately how many cigarettes per day: 10 Cigars Per Day: 0 Hx Chewing Tobacco Use: No Initiated information on smoking cessation: Yes 'Breaking Loose' booklet given: 09/11/17 - Substance & Tx. History Hx Alcohol Use: No Hx Substance Use: Yes Substance Use Type: Cocaine, Heroin (ON MMTP 80 MG), Tranquilizers (XANAX) Hx Substance Use Treatment: Yes ([facility]) - Substances Abused XANAX Route: Oral Frequency: Daily Amount used: 8MG Age of first use: 11 Date of Last Use: 09/10/17 COCAINE Route: Smoking Frequency: Daily Amount used: $50 Age of first use: 18 Date of Last Use: 09/10/17 Family Disease History - Family Disease History Family Disease History: Diabetes: Mother (mental disorder), Heart Disease: Grandparent, CA: Grandparent, Other: Mother Admission Physical Exam BHS - Vital Signs Vital Signs: Vital Signs - 24 hr 09/11/17 18:37 Temperature 97.5 F L Pulse Rate 61 Respiratory 18 Rate Blood Pressure 122/72 - Physical General Appearance: Yes: Appropriately Dressed, Moderate Distress, Tremorous, Sweating, Anxious HEENTM: Yes: EOMI, Normocephalic, Normal Voice, MARIE, Pharynx Normal Respiratory: Yes: Chest Non-Tender, Lungs Clear, Normal Breath Sounds, No Respiratory Distress, No Accessory Muscle Use Neck: Yes: No masses,lesions,Nodules, Supple, Trachea in good position Breast: Yes: Other (GYNECOMASTIA) Cardiology: Yes: Regular Rhythm, Regular Rate, S1, S2 Abdominal: Yes: Normal Bowel Sounds, Non Tender, Soft, Protuberent Genitourinary: Yes: Within Normal Limits (NO C/O) Back: Yes: Normal Inspection Musculoskeletal: Yes: full range of Motion, Gait Steady Extremities: Yes: Normal Capillary Refill, Normal Range of Motion, Non-Tender, Tremors Neurological: Yes: Alert, Disoriented (DISORTIENTED TO DATE) Integumentary: Yes: Warm, Moist, Track [place] Lymphatic: Yes: Within Normal Limits - Diagnostic (1) Toothache Current Visit: Yes Status: Acute (2) ADHD (attention deficit hyperactivity disorder) Current Visit: Yes Status: Suspected (3) PTSD (post-traumatic stress disorder) Current Visit: Yes Status: Suspected (4) Schizoaffective disorder Current Visit: Yes Status: Suspected (5) Cocaine dependence Current Visit: Yes Status: Chronic Qualifiers: Substance use status: uncomplicated Qualified Code(s): F14.20 - Cocaine dependence, uncomplicated (6) Epileptic Current Visit: Yes Status: Suspected Qualifiers: Epilepsy type: unspecified (7) Nicotine dependence Current Visit: Yes Status: Chronic Qualifiers: Nicotine product type: cigarettes Substance use status: uncomplicated Qualified Code(s): F17.210 - Nicotine dependence, cigarettes, uncomplicated (8) Opioid dependence on agonist therapy Current Visit: Yes Status: Chronic (9) Sedative/hypnotic withdrawal without complication Current Visit: Yes Status: Acute Cleared for Admission S - Detox or Rehab [facility] Level of Care: Medically Managed Detox Regimen/Protocol: Valium Claeared for Rehab Admission: No [facility] Breath Alcohol Content Breath Alcohol Content: 0 Urine Drug Screen - Results Drug Screen Negative: No Urine Drug Screen Results: ANABEL-Cocaine, OPI-Opiates, BZO-Benzodiazepines, MTD- Methadone, TCA-Tricyclic Antidepress
[2017-09-11] MEDS ORDERED: MAG HYDROX/AL HYDROX/SIMETH 30 ML UNIT-DOSE CUP PO PRN (21:04)
[2017-09-11] MEDS ORDERED: MAGNESIUM HYDROX 2400MG/30ML ORAL SUSPENSION 30 ML CUP PO PRN (21:04)
[2017-09-11] MEDS ORDERED: MENTHOL/PHENOL 1 EACH UD MM PRN (21:04)
[2017-09-11] MEDS ORDERED: MAGNESIUM CITRATE 300 ML BOTTLE PO PRN (21:04)
[2017-09-11] MEDS ORDERED: IBUPROFEN 400 MG TABLET (FP) PO PRN ×2 (21:04→21:14)
[2017-09-11] MEDS ORDERED: diazePAM 5 MG TABLET PO ONE (21:04)
[2017-09-11] MEDS ORDERED: guaiFENesin/D-METHORPHAN HB 10 ML UNIT-DOSE CUPS PO PRN (21:04)
[2017-09-11] MEDS ORDERED: P-EPHED 60MG/TRIPROLIDI 2.5MG TABLET PO PRN (21:04)
[2017-09-11] MEDS ORDERED: NICOTINE POLACRILEX 2 MG GUM BUC PRN (21:04)
[2017-09-11] MEDS ORDERED: LOPERAMIDE HCL 2 MG CAPSULE PO PRN (21:04)
[2017-09-11] MEDS ORDERED: LIDOCAINE VISCOUS 2% ORAL/TOP 20 ML UNIT-DOSE CUP MM PRN (21:13)
[2017-09-11] MEDS ORDERED: MELATONIN 5 MG TABLETS PO PRN (22:00)
[2017-09-12 06:55] LABS: URINE APPEARANCE CLEAR; URINE COLOR AMBER; URINE GLUCOSE (UA) NEGATIVE (NEGATIVE); URINE KETONE NEGATIVE (NEGATIVE); URINE LEUK ESTERASE TRACE (NEGATIVE); URINE NITRITE NEGATIVE (NEGATIVE); URINE UROBILINOGEN 4.0 E.U/dl mg/dL (0.2-1.0)
[2017-09-12] MEDS: diazePAM 5 MG TABLET PO SCH ×3 (06:59→22:12)
[2017-09-12] MEDS: THIAMINE HCL 100 MG TABLET (FP) PO SCH ×2 (06:59→22:12)
[2017-09-12 07:16] LABS: URINE PROTEIN 1+ (NEGATIVE)
[2017-09-12 07:26] LABS: URINE MUCUS RARE
[2017-09-12] MEDS: diazePAM 5 MG TABLET PO PRN ×2 (09:20→17:28)
[2017-09-12] MEDS: METHADONE HCL 40 MG DISPERSABLE TABLET PO SCH (09:49)
[2017-09-12] MEDS: PRENATAL VITAMINS W/ FOLIC ACID TABLET (FP) PO SCH (09:49)
[2017-09-12 10:32] LABS: HEMOGLOBIN 13.1 GM/dL (11.7-16.9); MCH 29.8 pg (25.7-33.7); MCHC 33.7 g/dl (32.0-35.9); MEAN CELL VOLUME 88.5 fl (80-96); MEAN PLT VOLUME 9.2 fl (7.5-11.1); PLATELET COUNT 218 K/MM3 (134-434); RDW 13.2 % (11.9-15.9); WHITE BLOOD COUNT 6.3 K/mm3 (4.0-10.0)
[2017-09-12 10:51] LABS: CHLORIDE 107 mmol/L (98-107); POTASSIUM 4.3 mmol/L (3.5-5.1); SODIUM 144 mmol/L (136-145)
[2017-09-12] MEDS: NICOTINE 21 MG/24 HOURS TOPICAL PATCH TD SCH (11:05)
[2017-09-12 12:26] LABS: ALBUMIN 3.2 g/dl (3.4-5.0); ALK PHOS 85 U/L (45-117); ANION GAP 5 (8-16); BILIRUBIN,TOTAL 0.1 mg/dL (0.2-1.0); BLOOD UREA NITROGEN 15 mg/dL (7-18); CALCIUM 8.3 mg/dL (8.5-10.1); CO2 32 mmol/L (21-32); CREATININE 0.8 mg/dL (0.7-1.3); GLUCOSE,RANDOM 88 mg/dL (74-106); SGOT/AST 10 U/L (15-37); TOT PROT 6.4 g/dl (6.4-8.2)
[2017-09-12 13:30] LABS: SGPT/ALT 17 U/L (12-78)
--- NOTE | 2017-09-12 13:30 | EKG ---
Test Reason : Blood Pressure : / mmHG Vent. Rate : 058 BPM Atrial Rate : 058 BPM P-R Int : 132 ms QRS Dur : 100 ms QT Int : 426 ms P-R-T Axes : 039 056 037 degrees QTc Int : 418 ms SINUS BRADYCARDIA OTHERWISE NORMAL ECG WHEN COMPARED WITH ECG OF 09-JAN-2017 22:36, NO SIGNIFICANT CHANGE WAS FOUND Confirmed by MUNA BURKETT MD ([id number]) on 09/12/2017 1:30:12 PM Referred By: Confirmed By:MUNA BURKETT MD
--- NOTE | 2017-09-12 13:44 | PN ---
S CIWA - CIWA Score Nausea/Vomitin Muscle Tremors: 3 Anxiety: 4-Mod. Anxious/Guarded Agitation: 2 Paroxysmal Sweats: 3 Orientation: 2-Disoriented Date<2 days Tacttile Disturbances: 0-None Auditory Disturbances: 2-Mild Harshness/Frighten Visual Disturbances: 0-None Headache: 0-None Present CIWA-Ar Total Score: 19 BHS Progress Note (SOAP) Subjective: Sweating, Chills, Nausea, Anxious, Stomach Cramping. Objective: PATIENT A & O X 2 (UNCERTAIN ABOUT CURRENT DAY / DATE). PATIENT OBSERVED AMBULATING ON UNIT. NO ACUTE DISTRESS. 09/12/17 13:41 Laboratory Tests 09/11/17 09/12/17 09/12/17 23:25 07:30 07:30 WBC 6.3 RBC 4.40 Hgb 13.1 D Hct 39.0 MCV 88.5 MCH 29.8 MCHC 33.7 RDW 13.2 Plt Count 218 MPV 9.2 Sodium 144 Potassium 4.3 Chloride 107 Carbon Dioxide 32 Anion Gap 5 L BUN 15 Creatinine 0.8 Creat Clearance w eGFR > 60 Random Glucose 88 Calcium 8.3 L Total Bilirubin 0.1 L D AST 10 L D ALT 17 D Alkaline Phosphatase 85 Total Protein 6.4 Albumin 3.2 L Urine Color Birgit Urine Appearance Clear Urine pH 6.0 Ur Specific [place] 1.030 Urine Protein 1+ H Urine Glucose (UA) Negative Urine Ketones Negative Urine Blood Negative Urine Nitrite Negative Urine Bilirubin 2.0 Urine Urobilinogen 4.0 e.u/dl Ur Leukocyte Esterase Trace Urine WBC (Auto) 2 Urine RBC (Auto) 5 Urine Mucus Rare HIV 1&2 Antibody Screen HIV P24 Antigen 09/12/17 07:30 WBC RBC Hgb Hct MCV MCH MCHC RDW Plt Count MPV Sodium Potassium Chloride Carbon Dioxide Anion Gap BUN Creatinine Creat Clearance w eGFR Random Glucose Calcium Total Bilirubin AST ALT Alkaline Phosphatase Total Protein Albumin Urine Color Urine Appearance Urine pH Ur Specific [place] Urine Protein Urine Glucose (UA) Urine Ketones Urine Blood Urine Nitrite Urine Bilirubin Urine Urobilinogen Ur Leukocyte Esterase Urine WBC (Auto) Urine RBC (Auto) Urine Mucus HIV 1&2 Antibody Screen Negative HIV P24 Antigen Negative LABS NOTED. RPR RESULT PENDING. 09/12/17 13:43 Assessment: 09/12/17 13:42 WITHDRAWAL SYMPTOMS. Plan: CONTINUE DETOX.
--- NOTE | 2017-09-12 16:40 | CONSULT ---
[facility] Psychiatric Consult - Data Date of interview: 09/12/17 Admission source: [facility] Identifying data: One of several admissions to [facility] for this 26 y/o male from [place] ancestry, seeking detox treatment on , for heroin,xanax,phencyclidine and cocaine dependence.Patient is single without dependents,hom[facility] ([facility]),unemployed and supported on welfare. Substance Abuse History: Confirmed by the patient in this interview.Smoking history: Current every day smoker. Have you smoked in the past 12 months: Yes. Aproximately how many cigarettes per day: 10. Cigars Per Day: 0. Hx Chewing Tobacco Use: No. Initiated information on smoking cessation: Yes. 'Breaking Loose' booklet given: 09/11/17. - Substance & Tx. History. Hx Alcohol Use: No. Hx Substance Use: Yes. Substance Use Type: Cocaine, Heroin (ON MMTP 80 MG) , Tranquilizers (XANAX). Hx Substance Use Treatment: Yes ([facility] - Substances Abused. XANAX. Route: Oral. Frequency: Daily. Amount used: 8MG. Age of first use: 11. Date of Last Use: 09/10/17. COCAINE. Route: Smoking. Frequency: Daily. Amount used: $50. Age of first use: 18. Date of Last Use: 09/10/17 Medical History: Remarkable for seizure disorder.Patient is maintained on depakote. Psychiatric History: Onset of psychiatric disturbances : age 16.Diagnosed with ADHD,Schizoaffective Disorder and PTSD.Mr Mak admits to a history of two psychiatric hospitalizations ([facility] + [facility]).Patient declares that he used to see a psychiatrist at the [facility] in [place].Managed on a regimen of haldol,cogentin,zoloft, depakote,adderall and klonopin.Chronically non-adherent to his medications.NO show at his [facility] clinic for a number of weeks as per self-report.On methadone maintenance (80 mg/day) at [facility] [place].Patient denies history of suicide attempts. Physical/Sexual Abuse/Trauma History: Patient declines to discuss this domain. Additional Comment: Urine Drug Screen Results: ANABEL-Cocaine, OPI-Opiates, BZO- Benzodiazepines, MTD-Methadone, TCA-Tricyclic Antidepressant.Noted. Mental Status Exam - Mental Status Exam Alert and Oriented to: Time, Place, Person Cognitive Function: Good Patient Appearance: Unkempt, Disheveled (short stature) Mood: Nervous, Withdrawn, Anxious, Irritable Affect: Mood Congruent Patient Behavior: Fatigued, Cooperative Speech Pattern: Clear, Appropriate Voice Loudness: Normal Thought Process: Goal Oriented Thought Disorder: Not Present Hallucinations: Denies Suicidal Ideation: Denies Homicidal Ideation: Denies Insight/Judgement: Poor Sleep: Poorly, Difficulty falling asleep Appetite: Good Muscle strength/Tone: Normal Gait/Station: Normal Psychiatric Findings - Problem List ([place] 1, 2,3) (1) Opioid dependence on agonist therapy Status: Chronic (2) Sedative/hypnotic withdrawal without complication Status: Acute (3) Cocaine dependence Status: Chronic Qualifiers: Substance use status: uncomplicated Qualified Code(s): F14.20 - Cocaine dependence, uncomplicated (4) Nicotine dependence Status: Acute Qualifiers: Nicotine product type: cigarettes Substance use status: in withdrawal Qualified Code(s): F17.213 - Nicotine dependence, cigarettes, with withdrawal (5) ADHD (attention deficit hyperactivity disorder) Status: Suspected Qualifiers: Attention deficit-hyperactivity disorder type: unspecified Qualified Code(s ): F90.9 - Attention-deficit hyperactivity disorder, unspecified type (6) PTSD (post-traumatic stress disorder) Status: Chronic Comment: As per history.No symptoms elicited in this session. (7) Schizoaffective disorder Status: Chronic Qualifiers: Schizoaffective disorder type: unspecified Qualified Code(s): F25.9 - Schizoaffective disorder, unspecified Comment: According to existing records.Non-adherence to medications. (8) Insomnia Status: Acute - Initial Treatment Plan Initial Treatment Plan: Records revisited.Sleep hygiene.Psychoeducation.Detoxification in progress.Patient declines to resume haloperidol or atypicals but he agrees to take valproate and sertraline.Ordered : zoloft 50 mg po daily + depakote 500 mg po daily + ambien 10 mg po hs prn.Side effects/benefits of these drugs are discussed with the patient.Mr Mak is in agreement with this plan of care.Valproic acid level is requested.Observation.
[2017-09-12] MEDS: ZOLPIDEM TARTRATE 10 MG TABLET (PARK CARE ONLY) PO SCH (22:12)
[2017-09-13] MEDS: METHADONE HCL 40 MG DISPERSABLE TABLET PO SCH (05:09)
[2017-09-13] MEDS: diazePAM 5 MG TABLET PO PRN ×3 (05:10→19:21)
[2017-09-13] MEDS: ACETAMINOPHEN 325 MG TABLET (FP) PO PRN (05:11)
[2017-09-13] MEDS: IBUPROFEN 600 MG TABLET (FP) PO PRN ×2 (06:26→15:17)
[2017-09-13] MEDS: SERTRALINE HCL 50 MG TABLET (FP) PO SCH (10:11)
[2017-09-13] MEDS: PRENATAL VITAMINS W/ FOLIC ACID TABLET (FP) PO SCH (10:11)
[2017-09-13] MEDS: diazePAM 5 MG TABLET PO SCH ×2 (10:11→22:11)
[2017-09-13] MEDS: DIVALPROEX NA *ER* EXTEND REL 500 MG TABLET.SA (FP) PO SCH (10:11)
[2017-09-13] MEDS: NICOTINE 21 MG/24 HOURS TOPICAL PATCH TD SCH (10:11)
--- NOTE | 2017-09-13 10:43 | PN ---
[facility] CIWA - CIWA Score Nausea/Vomitin-Int. Nausea w/Dry Heave Muscle Tremors: 4-Moderate,w/Arms Extend Anxiety: 4-Mod. Anxious/Guarded Agitation: 4-Moderately Restless Paroxysmal Sweats: 1-Minimal Palms Moist Orientation: 0-Oriented Tacttile Disturbances: 0-None Auditory Disturbances: 0-None Visual Disturbances: 0-None Headache: 0-None Present CIWA-Ar Total Score: 17 S Progress Note (SOAP) Subjective: ANXIETY,NAUSEA,BACK ACHE, HOT/COLD CHILLS, INTERMITTENT SLEEP,FATIGUE. Objective: 09/13/17 10:42 Vital Signs 09/13/17 09/13/17 05:59 09:12 Temperature 97.2 F L 98.1 F Pulse Rate 58 L 69 Respiratory 18 18 Rate Blood Pressure 122/79 116/66 Laboratory Tests 09/11/17 09/12/17 09/12/17 23:25 07:30 07:30 WBC 6.3 RBC 4.40 Hgb 13.1 D Hct 39.0 MCV 88.5 MCH 29.8 MCHC 33.7 RDW 13.2 Plt Count 218 MPV 9.2 Sodium 144 Potassium 4.3 Chloride 107 Carbon Dioxide 32 Anion Gap 5 L BUN 15 Creatinine 0.8 Creat Clearance w eGFR > 60 Random Glucose 88 Calcium 8.3 L Total Bilirubin 0.1 L D AST 10 L D ALT 17 D Alkaline Phosphatase 85 Total Protein 6.4 Albumin 3.2 L Urine Color Birgit Urine Appearance Clear Urine pH 6.0 Ur Specific [place] 1.030 Urine Protein 1+ H Urine Glucose (UA) Negative Urine Ketones Negative Urine Blood Negative Urine Nitrite Negative Urine Bilirubin 2.0 Urine Urobilinogen 4.0 e.u/dl Ur Leukocyte Esterase Trace Urine WBC (Auto) 2 Urine RBC (Auto) 5 Urine Mucus Rare RPR Titer HIV 1&2 Antibody Screen HIV P24 Antigen 09/12/17 09/12/17 07:30 07:30 WBC RBC Hgb Hct MCV MCH MCHC RDW Plt Count MPV Sodium Potassium Chloride Carbon Dioxide Anion Gap BUN Creatinine Creat Clearance w eGFR Random Glucose Calcium Total Bilirubin AST ALT Alkaline Phosphatase Total Protein Albumin Urine Color Urine Appearance Urine pH Ur Specific [place] Urine Protein Urine Glucose (UA) Urine Ketones Urine Blood Urine Nitrite Urine Bilirubin Urine Urobilinogen Ur Leukocyte Esterase Urine WBC (Auto) Urine RBC (Auto) Urine Mucus RPR Titer Nonreactive HIV 1&2 Antibody Screen Negative HIV P24 Antigen Negative Assessment: 09/13/17 10:42 WITHDRAWAL SX Plan: CONTINUE DETOX INCREASE PO FLUIDS TOLERATED ZOFRAN PRN MOTRIN PRN
[2017-09-13] MEDS: hydrOXYzine PAMOATE 50 MG CAPSULE (FP) PO PRN (16:59)
[2017-09-13] MEDS: THIAMINE HCL 100 MG TABLET (FP) PO SCH (22:11)
[2017-09-13] MEDS: ZOLPIDEM TARTRATE 10 MG TABLET (PARK CARE ONLY) PO SCH (22:11)
[2017-09-14] MEDS: diazePAM 5 MG TABLET PO PRN ×4 (02:22→19:25)
[2017-09-14] MEDS: IBUPROFEN 600 MG TABLET (FP) PO PRN ×3 (05:13→23:45)
[2017-09-14] MEDS: METHADONE HCL 40 MG DISPERSABLE TABLET PO SCH (05:45)
[2017-09-14] MEDS: ACETAMINOPHEN 325 MG TABLET (FP) PO PRN ×2 (09:46→22:12)
[2017-09-14] MEDS: PRENATAL VITAMINS W/ FOLIC ACID TABLET (FP) PO SCH (10:05)
[2017-09-14] MEDS: DIVALPROEX NA *ER* EXTEND REL 500 MG TABLET.SA (FP) PO SCH (10:05)
[2017-09-14] MEDS: diazePAM 5 MG TABLET PO SCH ×2 (10:05→22:12)
[2017-09-14] MEDS: SERTRALINE HCL 50 MG TABLET (FP) PO SCH (10:05)
[2017-09-14] MEDS: NICOTINE 21 MG/24 HOURS TOPICAL PATCH TD SCH (10:06)
--- NOTE | 2017-09-14 10:49 | PN ---
BHS Progress Note (SOAP) Subjective: ANXIETY,SWEATS/CHILLS,HICCUPS, RIGHT TOOTH ACHE. Objective: 09/14/17 10:46 Vital Signs 09/14/17 09/14/17 09/14/17 03:30 07:24 09:20 Temperature 98.3 F 98.1 F Pulse Rate 67 65 Respiratory 18 19 18 Rate Blood Pressure 117/74 138/81 Laboratory Tests 09/11/17 09/12/17 09/12/17 23:25 07:30 07:30 WBC 6.3 RBC 4.40 Hgb 13.1 D Hct 39.0 MCV 88.5 MCH 29.8 MCHC 33.7 RDW 13.2 Plt Count 218 MPV 9.2 Sodium 144 Potassium 4.3 Chloride 107 Carbon Dioxide 32 Anion Gap 5 L BUN 15 Creatinine 0.8 Creat Clearance w eGFR > 60 Random Glucose 88 Calcium 8.3 L Total Bilirubin 0.1 L D AST 10 L D ALT 17 D Alkaline Phosphatase 85 Total Protein 6.4 Albumin 3.2 L Urine Color Birgit Urine Appearance Clear Urine pH 6.0 Ur Specific [place] 1.030 Urine Protein 1+ H Urine Glucose (UA) Negative Urine Ketones Negative Urine Blood Negative Urine Nitrite Negative Urine Bilirubin 2.0 Urine Urobilinogen 4.0 e.u/dl Ur Leukocyte Esterase Trace Urine WBC (Auto) 2 Urine RBC (Auto) 5 Urine Mucus Rare Valproic Acid RPR Titer HIV 1&2 Antibody Screen HIV P24 Antigen 09/12/17 09/12/17 09/13/17 07:30 07:30 08:30 WBC RBC Hgb Hct MCV MCH MCHC RDW Plt Count MPV Sodium Potassium Chloride Carbon Dioxide Anion Gap BUN Creatinine Creat Clearance w eGFR Random Glucose Calcium Total Bilirubin AST ALT Alkaline Phosphatase Total Protein Albumin Urine Color Urine Appearance Urine pH Ur Specific [place] Urine Protein Urine Glucose (UA) Urine Ketones Urine Blood Urine Nitrite Urine Bilirubin Urine Urobilinogen Ur Leukocyte Esterase Urine WBC (Auto) Urine RBC (Auto) Urine Mucus Valproic Acid < 3.0 L RPR Titer Nonreactive HIV 1&2 Antibody Screen Negative HIV P24 Antigen Negative ORAL EXAM:NO REDNESS OR SWELLING NOTED. LEFT MOLAR TOOTH CRACK WITH FOOD DEPOSIT. Assessment: 09/14/17 10:46 WITHDRAWAL SX Plan: CONTINUE DETOX VISCOUS LIDOCAINE DIRECTED. MOTRIN PRN ORAL RINSE WITH MOUTH WASH AFTER EACH MEAL
[2017-09-14] MEDS: THIAMINE HCL 100 MG TABLET (FP) PO SCH (22:11)
[2017-09-14] MEDS: ZOLPIDEM TARTRATE 10 MG TABLET (PARK CARE ONLY) PO SCH (22:11)
[2017-09-15] MEDS: METHADONE HCL 40 MG DISPERSABLE TABLET PO SCH (05:45)
[2017-09-15 06:20] VITALS: BP 125/76; PULSE 60; TEMP 95.9
[2017-09-15] MEDS: IBUPROFEN 600 MG TABLET (FP) PO PRN (07:41)
[2017-09-15] MEDS: hydrOXYzine PAMOATE 50 MG CAPSULE (FP) PO PRN (07:41)
[2017-09-15] MEDS ORDERED: diazePAM 5 MG TABLET PO SCH (10:00)
--- NOTE | 2017-09-15 15:47 | DS ---
[facility] Detox Discharge Summary Admission Date: 09/11/17 Discharge Date: 09/15/17 - History Present History: Opioid Dependence, MMTP Additional Comments: PATIENT RETURNING TO [facility] ([facility] FOR AFTERCARE. PATIENT WAS DISCHARGED FROM DETOX UNIT IN STABLE MEDICAL CONDITION. Pertinent Past History: History of Epilepsy / Seizures, Depression, Bipolar Disorder, Schizoaffective Disorder, Toothache, MMTP, PTSD, ADHD, Nicotine Dependence, Insomnia. - Physical Exam Results Vital Signs: Vital Signs Temperature 95.9 F L 09/15/17 06:20 Pulse Rate 60 09/15/17 06:20 Respiratory Rate 18 09/15/17 06:20 Blood Pressure 125/76 09/15/17 06:20 O2 Sat by Pulse Oximetry (%) Pertinent Admission Physical Exam Findings: WITHDRAWAL SYMPTOMS. Laboratory Tests 09/11/17 09/12/17 09/12/17 23:25 07:30 07:30 WBC 6.3 RBC 4.40 Hgb 13.1 D Hct 39.0 MCV 88.5 MCH 29.8 MCHC 33.7 RDW 13.2 Plt Count 218 MPV 9.2 Sodium 144 Potassium 4.3 Chloride 107 Carbon Dioxide 32 Anion Gap 5 L BUN 15 Creatinine 0.8 Creat Clearance w eGFR > 60 Random Glucose 88 Calcium 8.3 L Total Bilirubin 0.1 L D AST 10 L D ALT 17 D Alkaline Phosphatase 85 Total Protein 6.4 Albumin 3.2 L Urine Color Birgit Urine Appearance Clear Urine pH 6.0 Ur Specific [place] 1.030 Urine Protein 1+ H Urine Glucose (UA) Negative Urine Ketones Negative Urine Blood Negative Urine Nitrite Negative Urine Bilirubin 2.0 Urine Urobilinogen 4.0 e.u/dl Ur Leukocyte Esterase Trace Urine WBC (Auto) 2 Urine RBC (Auto) 5 Urine Mucus Rare Valproic Acid RPR Titer HIV 1&2 Antibody Screen HIV P24 Antigen 09/12/17 09/12/17 09/13/17 07:30 07:30 08:30 WBC RBC Hgb Hct MCV MCH MCHC RDW Plt Count MPV Sodium Potassium Chloride Carbon Dioxide Anion Gap BUN Creatinine Creat Clearance w eGFR Random Glucose Calcium Total Bilirubin AST ALT Alkaline Phosphatase Total Protein Albumin Urine Color Urine Appearance Urine pH Ur Specific [place] Urine Protein Urine Glucose (UA) Urine Ketones Urine Blood Urine Nitrite Urine Bilirubin Urine Urobilinogen Ur Leukocyte Esterase Urine WBC (Auto) Urine RBC (Auto) Urine Mucus Valproic Acid < 3.0 L RPR Titer Nonreactive HIV 1&2 Antibody Screen Negative HIV P24 Antigen Negative LABS NOTED. - Treatment Hospital Course: Detox Protocol Followed, Detoxed Safely, Responded well, Discharged Condition Good - Medication Discharge Medications: Ambulatory Orders Divalproex Sodium [Divalproex Sodium ER] 500 mg PO DAILY 06/07/15 Risperidone [Risperdal -] 1 mg PO BID #60 tablet 01/29/17 Sertraline HCl [Zoloft -] 25 mg PO DAILY #30 tablet 01/29/17 Gabapentin 800 mg PO BID 09/12/17 Divalproex *ER* [Depakote *ER* -] 500 mg PO HS #30 tablet.sa 09/14/17 Sertraline HCl [Zoloft -] 50 mg PO DAILY #30 tablet 09/14/17 - Diagnosis (1) Sedative/hypnotic withdrawal without complication Status: Acute (2) Toothache Status: Acute (3) Cocaine dependence Status: Chronic Qualifiers: Substance use status: uncomplicated Qualified Code(s): F14.20 - Cocaine dependence, uncomplicated (4) Nicotine dependence Status: Acute Qualifiers: Nicotine product type: cigarettes Substance use status: in withdrawal Qualified Code(s): F17.213 - Nicotine dependence, cigarettes, with withdrawal (5) Opioid dependence on agonist therapy Status: Chronic (6) ADHD (attention deficit hyperactivity disorder) Status: Suspected Qualifiers: Attention deficit-hyperactivity disorder type: unspecified Qualified Code(s ): F90.9 - Attention-deficit hyperactivity disorder, unspecified type (7) Epileptic Status: Suspected Qualifiers: Epilepsy type: unspecified Intractability: not intractable Status epilepticus: without status epilepticus Qualified Code(s): G40.909 - Epilepsy , unspecified, not intractable, without status epilepticus (8) PTSD (post-traumatic stress disorder) Status: Chronic (9) Schizoaffective disorder Status: Chronic Qualifiers: Schizoaffective disorder type: unspecified Qualified Code(s): F25.9 - Schizoaffective disorder, unspecified (10) Insomnia Status: Acute Qualifiers: Insomnia type: unspecified Qualified Code(s): G47.00 - Insomnia, unspecified - AMA Did Patient Leave Against Medical Advice: No
== END 2017-09-15 09:14 | disposition home or self-care (01) | DRG 773 ==
LOC: YASAS 15:10 → Y3N 22:33
PROVIDERS: ADMIT Internal Medicine; ATTEND Internal Medicine
PROC: HZ2ZZZZ Detoxification Services for Substance Abuse Treatment (ICD-10-PCS; principal; 2017-09-11)
DX: F11.23 Opioid dependence with withdrawal (principal); F17.210 Nicotine dependence, cigarettes, uncomplicated; F31.9 Bipolar disorder, unspecified; F43.10 Post-traumatic stress disorder, unspecified; F90.9 Attention-deficit hyperactivity disorder, unspecified type; F25.9 Schizoaffective disorder, unspecified; G40.909 Epilepsy, unspecified, not intractable, without status epilepticus; G47.10 Hypersomnia, unspecified; K08.89 Other specified disorders of teeth and supporting structures
CPT/HCPCS: 36415; 80053; 80164; 81003; 81015; 85027; 86593; 87389; 93005; 93010

== ENCOUNTER 2017-12-26 12:28 | Inpatient (IN) | payer OTHER ==
[2017-12-26 13:14] VITALS: BMI 28.3
--- NOTE | 2017-12-26 19:43 | HP ---
CIWA Score - CIWA Score Nausea/Vomitin Muscle Tremors: 2 Anxiety: 3 Agitation: 3 Paroxysmal Sweats: 1-Minimal Palms Moist Orientation: 1-Uncertain about Date (no distress) Tacttile Disturbances: 0-None Auditory Disturbances: 0-None Visual Disturbances: 0-None Headache: 2-Mild CIWA-Ar Total Score: 15 Admission ROS BHS - HPI Chief Complaint: benzodiazepien withdrawal symptoms Allergies/Adverse Reactions: Allergies Allergy/AdvReac Type Severity Reaction Status Date / Time Barbiturates Allergy Severe Swelling Verified 12/26/17 16:37 Fish Containing Products Allergy Severe Hives Verified 12/26/17 16:37 History of Present Illness: 27 yo amle with hx xanax, klonopin and nicotine dependence is here seeking detox. MMTP: Singh Thakkar, methadone 80 mg , last mediated today, dose pending verification . Hep C, seizure d/o, bipolar. Denies suicidal / homicidal ideation. Last detox [facility] 09/11/17 -09/15/17. Exam Limitations: No Limitations - Ebola screening Have you traveled outside of the country in the last 21 days: No Have you had contact with anyone from an Ebola affected area: No Have you been sick,other than usual withdrawal symptoms: No Do you have a fever: No - Review of Systems Constitutional: Unintentional Wgt. Loss (reports 60 lbs loss in six month) EENT: reports: No Symptoms Reported Respiratory: reports: No Symptoms reported Cardiac: reports: No Symptoms Reported GI: reports: Nausea, Poor Fluid Intake : reports: No Symptoms Reported Musculoskeletal: reports: Back Pain (low back) Integumentary: reports: No Symptoms Reported Neuro: reports: Headache Endocrine: reports: Increased Thirst Hematology: reports: No Symptoms Reported Psychiatric: reports: Orientated x3, Anxious Other Systems: Reviewed and Negative Patient History - Patient Medical History Hx Anemia: No Hx Asthma: No Hx Chronic Obstructive Pulmonary Disease (COPD): No Hx Cancer: No Hx Cardiac Disorders: No Hx Congestive Heart Failure: No Hx Hypertension: No Hx Hypercholesterolemia: No Hx Pacemaker: No HX Cerebrovascular Accident: No Hx Seizures: Yes (pt has a hx of seizures last 6 months ago on Depakote.) Hx Dementia: No Hx Diabetes: No Hx Gastrointestinal Disorders: No Hx Liver Disease: No Hx Genitourinary Disorders: No Hx Sexually Transmitted Disorders: No Hx Renal Disease (ESRD): No Hx Thyroid Disease: No Hx Human Immunodeficiency Virus (HIV): No Hx Hepatitis C: No (neg) Hx Depression: Yes Hx Suicide Attempt: No Hx Bipolar Disorder: Yes Hx Schizophrenia: No - Patient Surgical History Past Surgical History: No Hx Neurologic Surgery: No Hx Cataract Extraction: No Hx Cardiac Surgery: No Hx Lung Surgery: No Hx Breast Surgery: No Hx Breast Biopsy: No Hx Abdominal Surgery: No Hx Appendectomy: No Hx Cholecystectomy: No Hx Genitourinary Surgery: No Hx Section: No Hx Orthopedic Surgery: No Anesthesia Reaction: No - PPD History Previous Implant?: Yes Documented Results: Negative w/proof Implanted On Prior [facility] Admission?: Yes Date: 01/11/17 Results: 0 mm PPD to be Administered?: No - Smoking Cessation Smoking history: Current every day smoker Have you smoked in the past 12 months: Yes Aproximately how many cigarettes per day: 10 Cigars Per Day: 0 Hx Chewing Tobacco Use: No Initiated information on smoking cessation: Yes 'Breaking Loose' booklet given: 12/26/17 - Substance & Tx. History Hx Alcohol Use: No Hx Substance Use: Yes Substance Use Type: Cocaine, Heroin, Tranquilizers Hx Substance Use Treatment: Yes ([facility] 09/11/17 -09/15/17) - Substances Abused Cocaine Route: Injection Frequency: Daily Amount used: $60 Age of first use: 16 Date of Last Use: 12/25/17 Heroin Route: Injection Frequency: Daily Amount used: 2 bags Age of first use: 16 Date of Last Use: 12/25/17 PCP Route: Smoking Frequency: 1-2 times per week Amount used: $60 Age of first use: 16 Date of Last Use: 12/25/17 Xanax or klonopin Route: Oral Frequency: Daily Amount used: 6mg or 10mg Age of first use: 15 Date of Last Use: 12/25/17 Family Disease History - Family Disease History Family Disease History: Diabetes: Mother (mental disorder), Heart Disease: Grandparent, CA: Grandparent, Other: Mother Admission Physical Exam BHS - Vital Signs Vital Signs: Vital Signs - 24 hr 12/26/17 13:12 Temperature 97.6 F Pulse Rate 79 Respiratory 20 Rate Blood Pressure 143/86 - Physical General Appearance: Yes: Disheveled, Moderate Distress, Sweating, Anxious, Other (. Poor hygiene) HEENTM: Yes: EOMI, Hearing grossly Normal, Normal ENT Inspection, Normocephalic , Normal Voice, MARIE, Pharynx Normal, Tm's normal Respiratory: Yes: Within Normal Limits Neck: Yes: Within Normal Limits Breast: Yes: Breast Exam Deferred Cardiology: Yes: Regular Rhythm, Regular Rate Abdominal: Yes: Normal Bowel Sounds, Non Tender, Flat, Soft Genitourinary: Yes: Within Normal Limits Back: Yes: Normal Inspection Musculoskeletal: Yes: full range of Motion, Gait Steady, Pelvis Stable Extremities: Yes: Normal Capillary Refill, Normal Inspection, Normal Range of Motion, Non-Tender Neurological: Yes: shoe associate II-XII NML intact, Fully Oriented, Alert, Motor Strength 5/5, Depressed Affect Integumentary: Yes: Normal Color, Warm, Diaphoresis Lymphatic: Yes: Within Normal Limits - Diagnostic (1) Nicotine dependence Current Visit: Yes Status: Acute Qualifiers: Nicotine product type: cigarettes Substance use status: in withdrawal Qualified Code(s): F17.213 - Nicotine dependence, cigarettes, with withdrawal (2) Sedative/hypnotic withdrawal without complication Current Visit: Yes Status: Acute (3) Cocaine dependence Current Visit: Yes Status: Chronic Qualifiers: Substance use status: uncomplicated Qualified Code(s): F14.20 - Cocaine dependence, uncomplicated (4) Opioid dependence on agonist therapy Current Visit: Yes Status: Chronic (5) Epileptic Current Visit: Yes Status: Suspected Qualifiers: Epilepsy type: unspecified Intractability: not intractable Status epilepticus: without status epilepticus Qualified Code(s): G40.909 - Epilepsy , unspecified, not intractable, without status epilepticus Cleared for Admission [facility] - Detox or Rehab [facility] Level of Care: Medically Managed Detox Regimen/Protocol: Valium [facility] Breath Alcohol Content Breath Alcohol Content: 0 Urine Drug Screen - Results Drug Screen Negative: No Urine Drug Screen Results: ANABEL-Cocaine, OPI-Opiates, BAR-Barbiturates, BZO- Benzodiazepines, MTD-Methadone
[2017-12-26] MEDS ORDERED: P-EPHED 60MG/TRIPROLIDI 2.5MG TABLET PO PRN (19:45)
[2017-12-26] MEDS ORDERED: MAGNESIUM HYDROX 2400MG/30ML ORAL SUSPENSION 30 ML CUP PO PRN (19:45)
[2017-12-26] MEDS ORDERED: MAGNESIUM CITRATE 300 ML BOTTLE PO PRN (19:45)
[2017-12-26] MEDS ORDERED: MENTHOL/PHENOL 1 EACH UD MM PRN (19:45)
[2017-12-26] MEDS ORDERED: NICOTINE POLACRILEX 2 MG GUM BC PRN (19:45)
[2017-12-26] MEDS ORDERED: diazePAM 5 MG TABLET PO ONE (19:45)
[2017-12-26] MEDS ORDERED: LOPERAMIDE HCL 2 MG CAPSULE PO PRN (19:45)
[2017-12-26] MEDS: THIAMINE HCL 100 MG TABLET (FP) PO SCH (21:41)
[2017-12-26] MEDS: MELATONIN 5 MG TABLETS PO PRN (21:42)
[2017-12-26] MEDS: diazePAM 5 MG TABLET PO SCH (22:22)
[2017-12-26 23:57] LABS: URINE APPEARANCE CLEAR; URINE BILIRUBIN NEGATIVE (<2.0 mg/dL); URINE COLOR AMBER; URINE GLUCOSE (UA) NEGATIVE (NEGATIVE); URINE KETONE TRACE (NEGATIVE); URINE LEUK ESTERASE NEGATIVE (NEGATIVE); URINE NITRITE NEGATIVE (NEGATIVE)
[2017-12-27 00:26] LABS: URINE PROTEIN 2+ (NEGATIVE)
[2017-12-27 00:55] LABS: EPI CELLS RARE /HPF (FEW); URINE BACTERIA RARE /hpf (NONE SEEN); URINE HYALINE CAST 1 /lpf; URINE MUCUS RARE
[2017-12-27] MEDS: diazePAM 5 MG TABLET PO SCH ×3 (05:59→22:22)
[2017-12-27] MEDS: diazePAM 5 MG TABLET PO PRN ×3 (08:23→17:31)
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
[2017-12-27] MEDS ORDERED: NICOTINE 14 MG/24 HOURS TOPICAL PATCH TD SCH (10:00)
[2017-12-27] MEDS: METHADONE HCL 40 MG DISPERSABLE TABLET PO SCH (10:17)
[2017-12-27] MEDS: PRENATAL VITAMINS W/ FOLIC ACID TABLET (FP) PO SCH (10:17)
[2017-12-27] MEDS: SERTRALINE HCL 25 MG TABLET (FP) PO SCH (10:18)
[2017-12-27 10:36] LABS: HEMATOCRIT 43.1 % (35.4-49); HEMOGLOBIN 14.1 GM/dL (11.7-16.9); MCH 28.6 pg (25.7-33.7); MCHC 32.8 g/dl (32.0-35.9); MEAN CELL VOLUME 87.1 fl (80-96); MEAN PLT VOLUME 9.5 fl (7.5-11.1); PLATELET COUNT 235 K/MM3 (134-434); RBC 4.95 M/mm3 (4.00-5.60); WHITE BLOOD COUNT 8.1 K/mm3 (4.0-10.0)
[2017-12-27 10:53] LABS: CHLORIDE 105 mmol/L (98-107); POTASSIUM 4.2 mmol/L (3.5-5.1); SODIUM 144 mmol/L (136-145)
[2017-12-27 11:06] LABS: ALBUMIN 3.5 g/dl (3.4-5.0); ALK PHOS 94 U/L (45-117); ANION GAP 11 MMOL/L (8-16); BILIRUBIN,TOTAL 0.3 mg/dL (0.2-1.0); BLOOD UREA NITROGEN 21 mg/dL (7-18); CALCIUM 8.9 mg/dL (8.5-10.1); CO2 28 mmol/L (21-32); CREATININE 0.8 mg/dL (0.7-1.3); GLUCOSE,RANDOM 88 mg/dL (74-106); SGOT/AST 9 U/L (15-37); SGPT/ALT 20 U/L (13-61); TOT PROT 7.1 g/dl (6.4-8.2)
[2017-12-27] MEDS: MAG HYDROX/AL HYDROX/SIMETH 30 ML UNIT-DOSE CUP PO PRN (12:43)
[2017-12-27] MEDS: LIDOCAINE 5% TOPICAL PATCH TP SCH (12:43)
[2017-12-27] MEDS: GABAPENTIN 100 MG CAPSULE (FP) PO SCH ×2 (14:01→22:22)
--- NOTE | 2017-12-27 15:17 | PN ---
[facility] CIWA - CIWA Score Nausea/Vomitin-No Nausea/No Vomiting Muscle Tremors: 1-None Visible, but [place] Anxiety: 1-Mildly Anxious Agitation: 1-Slight > Activity Paroxysmal Sweats: 1-Minimal Palms Moist Orientation: 0-Oriented Tacttile Disturbances: 2-Mild Itch/Numbness/Burn Auditory Disturbances: 0-None Visual Disturbances: 0-None Headache: 0-None Present CIWA-Ar Total Score: 6 BHS Progress Note (SOAP) Subjective: Patient presents with anxiety, numbness and tingling to feet and difficulty to stay still. Objective: 12/27/17 15:16 Vital Signs Temperature 96.8 F L 12/27/17 13:48 Pulse Rate 79 12/27/17 13:48 Respiratory Rate 18 12/27/17 13:48 Blood Pressure 121/76 12/27/17 13:48 O2 Sat by Pulse Oximetry (%) Laboratory Results - last 24 hr 12/26/17 12/27/17 12/27/17 Unknown 07:00 07:00 WBC 8.1 RBC 4.95 Hgb 14.1 Hct 43.1 MCV 87.1 MCH 28.6 MCHC 32.8 RDW 13.0 Plt Count 235 MPV 9.5 Platelet Comment No clumping noted Sodium 144 Potassium 4.2 Chloride 105 Carbon Dioxide 28 Anion Gap 11 BUN 21 H Creatinine 0.8 Creat Clearance w eGFR > 60 Random Glucose 88 Calcium 8.9 Total Bilirubin 0.3 AST 9 L ALT 20 Alkaline Phosphatase 94 Total Protein 7.1 Albumin 3.5 Urine Color Birgit Urine Appearance Clear Urine pH 5.0 Ur Specific [place] 1.032 Urine Protein 2+ H Urine Glucose (UA) Negative Urine Ketones Trace H Urine Blood Negative Urine Nitrite Negative Urine Bilirubin Negative Urine Urobilinogen 2.0 Ur Leukocyte Esterase Negative Urine WBC (Auto) 2 Urine RBC (Auto) 8 Ur Epithelial Cells Rare Urine Bacteria Rare Hyaline Casts 1 Urine Mucus Rare RPR Titer 12/27/17 07:00 WBC RBC Hgb Hct MCV MCH MCHC RDW Plt Count MPV Platelet Comment Sodium Potassium Chloride Carbon Dioxide Anion Gap BUN Creatinine Creat Clearance w eGFR Random Glucose Calcium Total Bilirubin AST ALT Alkaline Phosphatase Total Protein Albumin Urine Color Urine Appearance Urine pH Ur Specific [place] Urine Protein Urine Glucose (UA) Urine Ketones Urine Blood Urine Nitrite Urine Bilirubin Urine Urobilinogen Ur Leukocyte Esterase Urine WBC (Auto) Urine RBC (Auto) Ur Epithelial Cells Urine Bacteria Hyaline Casts Urine Mucus RPR Titer Nonreactive 12/27/17 15:17 skin moist and intact car s1s2 resp cta Assessment: 12/27/17 15:16 Withdrawal syndrome Plan: Continue detox as per protocol
--- NOTE | 2017-12-27 15:41 | EKG ---
Test Reason : Blood Pressure : / mmHG Vent. Rate : 067 BPM Atrial Rate : 067 BPM P-R Int : 132 ms QRS Dur : 094 ms QT Int : 428 ms P-R-T Axes : 044 063 052 degrees QTc Int : 452 ms NORMAL SINUS RHYTHM NORMAL ECG WHEN COMPARED WITH ECG OF 12-SEP-2017 01:09, NO SIGNIFICANT CHANGE WAS FOUND Confirmed by THEODORE MARK MD ([id number]) on 12/27/2017 3:41:21 PM Referred By: Confirmed By:THEODORE MARK MD
[2017-12-27] MEDS: THIAMINE HCL 100 MG TABLET (FP) PO SCH (22:22)
[2017-12-27] MEDS: DIVALPROEX NA *ER* EXTEND REL 500 MG TABLET.SA (FP) PO SCH (22:22)
[2017-12-27] MEDS: LIDOCAINE PATCH REMOVAL MC SCH (22:23)
[2017-12-27] MEDS: MINERAL OIL/PETROLAT/WATER TOPICAL CREAM 113 GM JAR TP SCH (22:23)
[2017-12-27] MEDS: MELATONIN 5 MG TABLETS PO PRN (22:28)
[2017-12-28] MEDS: MAG HYDROX/AL HYDROX/SIMETH 30 ML UNIT-DOSE CUP PO PRN ×3 (00:03→19:13)
[2017-12-28] MEDS: diazePAM 5 MG TABLET PO PRN ×4 (00:03→19:10)
[2017-12-28] MEDS: METHADONE HCL 40 MG DISPERSABLE TABLET PO SCH (05:09)
[2017-12-28] MEDS: GABAPENTIN 100 MG CAPSULE (FP) PO SCH ×3 (05:10→22:16)
--- NOTE | 2017-12-28 09:50 | PN ---
[facility] CIWA - CIWA Score Nausea/Vomitin-Mild Nausea/No Vomiting Muscle Tremors: 2 Anxiety: 3 Agitation: 3 Paroxysmal Sweats: 3 Orientation: 0-Oriented Tacttile Disturbances: 2-Mild Itch/Numbness/Burn Auditory Disturbances: 0-None Visual Disturbances: 0-None Headache: 0-None Present CIWA-Ar Total Score: 14 S Progress Note (SOAP) Subjective: anxious, heart burn, restless, interrupted sleep, back pain and chronic neck pain Objective: 12/28/17 12:30 Vital Signs Temperature 96.5 F L 12/28/17 09:05 Pulse Rate 68 12/28/17 09:05 Respiratory Rate 18 12/28/17 09:05 Blood Pressure 113/68 12/28/17 09:05 O2 Sat by Pulse Oximetry (%) Laboratory Last Values WBC 8.1 K/mm3 (4.0-10.0) 12/27/17 07:00 RBC 4.95 M/mm3 (4.00-5.60) 12/27/17 07:00 Hgb 14.1 GM/dL (11.7-16.9) 12/27/17 07:00 Hct 43.1 % (35.4-49) 12/27/17 07:00 MCV 87.1 fl (80-96) 12/27/17 07:00 MCH 28.6 pg (25.7-33.7) 12/27/17 07:00 MCHC 32.8 g/dl (32.0-35.9) 12/27/17 07:00 RDW 13.0 % (11.9-15.9) 12/27/17 07:00 Plt Count 235 K/MM3 (134-434) 12/27/17 07:00 MPV 9.5 fl (7.5-11.1) 12/27/17 07:00 Platelet Comment No clumping noted 12/27/17 07:00 Sodium 144 mmol/L (136-145) 12/27/17 07:00 Potassium 4.2 mmol/L (3.5-5.1) 12/27/17 07:00 Chloride 105 mmol/L (98-107) 12/27/17 07:00 Carbon Dioxide 28 mmol/L (21-32) 12/27/17 07:00 Anion Gap 11 MMOL/L (8-16) 12/27/17 07:00 BUN 21 mg/dL (7-18) H 12/27/17 07:00 Creatinine 0.8 mg/dL (0.7-1.3) 12/27/17 07:00 Creat Clearance w eGFR > 60 (>60) 12/27/17 07:00 Random Glucose 88 mg/dL (74-106) 12/27/17 07:00 Calcium 8.9 mg/dL (8.5-10.1) 12/27/17 07:00 Total Bilirubin 0.3 mg/dL (0.2-1.0) 12/27/17 07:00 AST 9 U/L (15-37) L 12/27/17 07:00 ALT 20 U/L (13-61) 12/27/17 07:00 Alkaline Phosphatase 94 U/L (45-117) 12/27/17 07:00 Total Protein 7.1 g/dl (6.4-8.2) 12/27/17 07:00 Albumin 3.5 g/dl (3.4-5.0) 12/27/17 07:00 Urine Color Birgit 12/26/17 Unknown Urine Appearance Clear 12/26/17 Unknown Urine pH 5.0 (5.0-8.0) 12/26/17 Unknown Ur Specific [place] 1.032 (1.001-1.035) 12/26/17 Unknown Urine Protein 2+ (NEGATIVE) H 12/26/17 Unknown Urine Glucose (UA) Negative (NEGATIVE) 12/26/17 Unknown Urine Ketones Trace (NEGATIVE) H 12/26/17 Unknown Urine Blood Negative (NEGATIVE) 12/26/17 Unknown Urine Nitrite Negative (NEGATIVE) 12/26/17 Unknown Urine Bilirubin Negative (<2.0 mg/dL) 12/26/17 Unknown Urine Urobilinogen 2.0 mg/dL (0.2-1.0) 12/26/17 Unknown Ur Leukocyte Esterase Negative (NEGATIVE) 12/26/17 Unknown Urine WBC (Auto) 2 /hpf (3-5) 12/26/17 Unknown Urine RBC (Auto) 8 /hpf (0-3) 12/26/17 Unknown Ur Epithelial Cells Rare /HPF (FEW) 12/26/17 Unknown Urine Bacteria Rare /hpf (NONE SEEN) 09/12/18 Unknown Hyaline Casts 1 /lpf 12/26/17 Unknown Urine Mucus Rare 12/26/17 Unknown RPR Titer Nonreactive (NONREACTIVE) 12/27/17 07:00 Assessment: 12/28/17 12:30 withdrawal sx GERD chronic back and neck pain 12/28/17 12:30 Plan: increase po fluids protonix 20 mg low acid foods flexeril PRN continue detox continue to monitor
[2017-12-28] MEDS: MINERAL OIL/PETROLAT/WATER TOPICAL CREAM 113 GM JAR TP SCH ×2 (10:05→22:22)
[2017-12-28] MEDS: NICOTINE 21 MG/24 HOURS TOPICAL PATCH TD SCH (10:05)
[2017-12-28] MEDS: LIDOCAINE 5% TOPICAL PATCH TP SCH (10:05)
[2017-12-28] MEDS: diazePAM 5 MG TABLET PO SCH ×2 (10:06→22:16)
[2017-12-28] MEDS: SERTRALINE HCL 25 MG TABLET (FP) PO SCH (10:06)
[2017-12-28] MEDS: PRENATAL VITAMINS W/ FOLIC ACID TABLET (FP) PO SCH (10:06)
[2017-12-28] MEDS: VITAMINS A AND D TOPICAL OINTMENT 60 GM TUBE TP SCH ×2 (10:46→22:23)
[2017-12-28] MEDS: PANTOPRAZOLE 20 MG TABLET (FP) PO SCH (10:47)
[2017-12-28] MEDS: guaiFENesin/D-METHORPHAN HB 10 ML UNIT-DOSE CUPS PO PRN (11:44)
[2017-12-28] MEDS: CYCLOBENZAPRINE HCL 5 MG TABLET PO SCH ×2 (13:53→22:16)
[2017-12-28] MEDS: IBUPROFEN 400 MG TABLET (FP) PO PRN ×2 (13:53→22:19)
[2017-12-28] MEDS: ACETAMINOPHEN 325 MG TABLET (FP) PO PRN (19:12)
[2017-12-28] MEDS: THIAMINE HCL 100 MG TABLET (FP) PO SCH (22:16)
[2017-12-28] MEDS: DIVALPROEX NA *ER* EXTEND REL 500 MG TABLET.SA (FP) PO SCH (22:16)
[2017-12-28] MEDS: MELATONIN 5 MG TABLETS PO PRN (22:17)
[2017-12-28] MEDS: LIDOCAINE PATCH REMOVAL MC SCH (22:23)
[2017-12-29] MEDS: diazePAM 5 MG TABLET PO PRN ×4 (01:31→16:50)
[2017-12-29] MEDS: CYCLOBENZAPRINE HCL 5 MG TABLET PO SCH ×3 (05:28→22:10)
[2017-12-29] MEDS: guaiFENesin/D-METHORPHAN HB 10 ML UNIT-DOSE CUPS PO PRN ×3 (05:28→22:10)
[2017-12-29] MEDS: METHADONE HCL 40 MG DISPERSABLE TABLET PO SCH (05:28)
[2017-12-29] MEDS: GABAPENTIN 100 MG CAPSULE (FP) PO SCH ×3 (05:28→22:09)
[2017-12-29] MEDS: SERTRALINE HCL 25 MG TABLET (FP) PO SCH (10:08)
[2017-12-29] MEDS: PANTOPRAZOLE 20 MG TABLET (FP) PO SCH (10:08)
[2017-12-29] MEDS: PRENATAL VITAMINS W/ FOLIC ACID TABLET (FP) PO SCH (10:08)
[2017-12-29] MEDS: diazePAM 5 MG TABLET PO SCH ×2 (10:09→22:09)
[2017-12-29] MEDS: NICOTINE 21 MG/24 HOURS TOPICAL PATCH TD SCH (10:09)
[2017-12-29] MEDS: VITAMINS A AND D TOPICAL OINTMENT 60 GM TUBE TP SCH ×2 (10:12→23:09)
[2017-12-29] MEDS: MINERAL OIL/PETROLAT/WATER TOPICAL CREAM 113 GM JAR TP SCH ×2 (10:12→23:09)
[2017-12-29] MEDS: LIDOCAINE 5% TOPICAL PATCH TP SCH (10:12)
[2017-12-29] MEDS: IBUPROFEN 400 MG TABLET (FP) PO PRN (11:39)
--- NOTE | 2017-12-29 14:20 | PN ---
BHS Progress Note (SOAP) Subjective: patient reports some nasal congestion, and bodyaches , itching with lidocaine patch Objective: 12/29/17 14:19 aaox 3 , nad CBC, BMP 12/27/17 07:00 12/27/17 07:00 Vital Signs Temperature 98.0 F 12/29/17 10:50 Pulse Rate 71 12/29/17 10:50 Respiratory Rate 16 12/29/17 10:50 Blood Pressure 104/68 12/29/17 10:50 O2 Sat by Pulse Oximetry (%) Assessment: 12/29/17 14:19 benzodiazepine dependence , opioid dependence on MMTP Plan: continue taper , MMTP
[2017-12-29] MEDS: hydrOXYzine PAMOATE 25 MG CAPSULE (FP) PO PRN (22:09)
[2017-12-29] MEDS: THIAMINE HCL 100 MG TABLET (FP) PO SCH (22:10)
[2017-12-29] MEDS: DIVALPROEX NA *ER* EXTEND REL 500 MG TABLET.SA (FP) PO SCH (23:09)
[2017-12-30] MEDS: hydrOXYzine PAMOATE 25 MG CAPSULE (FP) PO PRN ×3 (01:30→22:10)
[2017-12-30] MEDS: guaiFENesin/D-METHORPHAN HB 10 ML UNIT-DOSE CUPS PO PRN (01:30)
[2017-12-30] MEDS: IBUPROFEN 400 MG TABLET (FP) PO PRN (01:30)
[2017-12-30] MEDS: ACETAMINOPHEN 325 MG TABLET (FP) PO PRN (04:01)
[2017-12-30] MEDS: GABAPENTIN 100 MG CAPSULE (FP) PO SCH ×3 (05:36→22:09)
[2017-12-30] MEDS: CYCLOBENZAPRINE HCL 5 MG TABLET PO SCH ×3 (05:36→22:09)
[2017-12-30] MEDS: METHADONE HCL 40 MG DISPERSABLE TABLET PO SCH (05:36)
[2017-12-30] MEDS ORDERED: diazePAM 5 MG TABLET PO SCH (10:00)
[2017-12-30] MEDS: NICOTINE 21 MG/24 HOURS TOPICAL PATCH TD SCH (10:23)
[2017-12-30] MEDS: PRENATAL VITAMINS W/ FOLIC ACID TABLET (FP) PO SCH (10:23)
[2017-12-30] MEDS: PANTOPRAZOLE 20 MG TABLET (FP) PO SCH (10:23)
[2017-12-30] MEDS: MINERAL OIL/PETROLAT/WATER TOPICAL CREAM 113 GM JAR TP SCH ×2 (10:23→22:36)
[2017-12-30] MEDS: VITAMINS A AND D TOPICAL OINTMENT 60 GM TUBE TP SCH ×2 (10:23→22:37)
[2017-12-30] MEDS: SERTRALINE HCL 25 MG TABLET (FP) PO SCH (10:25)
--- NOTE | 2017-12-30 15:39 | PN ---
S Progress Note (SOAP) Subjective: Headache, sweating, nausea Objective: 12/30/17 15:36 Last Vital Signs Temp Pulse Resp BP Pulse Ox 97.0 F L 74 18 129/72 12/30/17 14:00 12/30/17 14:00 12/30/17 14:00 12/30/17 14:00 Laboratory Tests 12/26/17 12/27/17 12/27/17 Unknown 07:00 07:00 WBC 8.1 RBC 4.95 Hgb 14.1 Hct 43.1 MCV 87.1 MCH 28.6 MCHC 32.8 RDW 13.0 Plt Count 235 MPV 9.5 Platelet Comment No clumping noted Sodium 144 Potassium 4.2 Chloride 105 Carbon Dioxide 28 Anion Gap 11 BUN 21 H Creatinine 0.8 Creat Clearance w eGFR > 60 Random Glucose 88 Calcium 8.9 Total Bilirubin 0.3 AST 9 L ALT 20 Alkaline Phosphatase 94 Total Protein 7.1 Albumin 3.5 Urine Color Birgit Urine Appearance Clear Urine pH 5.0 Ur Specific [place] 1.032 Urine Protein 2+ H Urine Glucose (UA) Negative Urine Ketones Trace H Urine Blood Negative Urine Nitrite Negative Urine Bilirubin Negative Urine Urobilinogen 2.0 Ur Leukocyte Esterase Negative Urine WBC (Auto) 2 Urine RBC (Auto) 8 Ur Epithelial Cells Rare Urine Bacteria Rare Hyaline Casts 1 Urine Mucus Rare RPR Titer 12/27/17 07:00 WBC RBC Hgb Hct MCV MCH MCHC RDW Plt Count MPV Platelet Comment Sodium Potassium Chloride Carbon Dioxide Anion Gap BUN Creatinine Creat Clearance w eGFR Random Glucose Calcium Total Bilirubin AST ALT Alkaline Phosphatase Total Protein Albumin Urine Color Urine Appearance Urine pH Ur Specific [place] Urine Protein Urine Glucose (UA) Urine Ketones Urine Blood Urine Nitrite Urine Bilirubin Urine Urobilinogen Ur Leukocyte Esterase Urine WBC (Auto) Urine RBC (Auto) Ur Epithelial Cells Urine Bacteria Hyaline Casts Urine Mucus RPR Titer Nonreactive Labs reviewed: bun 21, abnormal UA Assessment: 12/30/17 15:37 Withdrawal symptoms Noted with azotemia and abnormal UA Plan: Continue detox Azotemia: encouraged PO water hydration Abnormal UA: encouraged to drink more water, repeat UA
[2017-12-30 18:11] LABS: URINE APPEARANCE CLEAR; URINE BILIRUBIN NEGATIVE (<2.0 mg/dL); URINE COLOR LTYELLOW; URINE GLUCOSE (UA) NEGATIVE (NEGATIVE); URINE KETONE NEGATIVE (NEGATIVE); URINE LEUK ESTERASE NEGATIVE (NEGATIVE); URINE NITRITE NEGATIVE (NEGATIVE); URINE PROTEIN NEGATIVE (NEGATIVE); URINE UROBILINOGEN NEGATIVE mg/dL (0.2-1.0)
[2017-12-30] MEDS: THIAMINE HCL 100 MG TABLET (FP) PO SCH (22:09)
[2017-12-30] MEDS: DIVALPROEX NA *ER* EXTEND REL 500 MG TABLET.SA (FP) PO SCH (22:09)
[2017-12-30] MEDS: MELATONIN 5 MG TABLETS PO PRN (22:10)
[2017-12-31] MEDS: ACETAMINOPHEN 325 MG TABLET (FP) PO PRN (02:01)
[2017-12-31] MEDS: hydrOXYzine PAMOATE 25 MG CAPSULE (FP) PO PRN ×2 (02:01→09:29)
[2017-12-31] MEDS: GABAPENTIN 100 MG CAPSULE (FP) PO SCH (05:12)
[2017-12-31] MEDS: METHADONE HCL 40 MG DISPERSABLE TABLET PO SCH (05:12)
[2017-12-31] MEDS: CYCLOBENZAPRINE HCL 5 MG TABLET PO SCH (05:12)
[2017-12-31 06:16] VITALS: BP 122/72; PULSE 81; TEMP 97
[2017-12-31] MEDS: PRENATAL VITAMINS W/ FOLIC ACID TABLET (FP) PO SCH (10:23)
[2017-12-31] MEDS: VITAMINS A AND D TOPICAL OINTMENT 60 GM TUBE TP SCH (10:23)
[2017-12-31] MEDS: MINERAL OIL/PETROLAT/WATER TOPICAL CREAM 113 GM JAR TP SCH (10:23)
[2017-12-31] MEDS: NICOTINE 21 MG/24 HOURS TOPICAL PATCH TD SCH (10:23)
[2017-12-31] MEDS: SERTRALINE HCL 25 MG TABLET (FP) PO SCH (10:23)
[2017-12-31] MEDS: PANTOPRAZOLE 20 MG TABLET (FP) PO SCH (10:23)
--- NOTE | 2017-12-31 16:06 | PN ---
BHS Progress Note (SOAP) Subjective: pt denies any complaints Anxious about aftercare program Objective: 12/31/17 16:04 A & O x 3 Vital Signs Temperature 97 F L 12/31/17 06:16 Pulse Rate 81 12/31/17 06:16 Respiratory Rate 18 12/31/17 06:16 Blood Pressure 122/72 12/31/17 06:16 O2 Sat by Pulse Oximetry (%) Assessment: 12/31/17 16:04 detox completed Plan: for discharge
--- NOTE | 2017-12-31 16:08 | DS ---
[facility] Detox Discharge Summary Admission Date: 12/26/17 Discharge Date: 12/31/17 - History Additional Comments: pt for discharge Decline in patient admission at [facility] rehab Will f/u at [facility] on admission there Depakote script sent to [place] per pt's request - Physical Exam Results Vital Signs: Vital Signs Temperature 97 F L 12/31/17 06:16 Pulse Rate 81 12/31/17 06:16 Respiratory Rate 18 12/31/17 06:16 Blood Pressure 122/72 12/31/17 06:16 O2 Sat by Pulse Oximetry (%) Pertinent Admission Physical Exam Findings: withdrawal sx - Treatment Hospital Course: Detox Protocol Followed, Detoxed Safely, Responded well, Discharged Condition Good - Medication Discharge Medications: Ambulatory Orders Gabapentin 800 mg PO BID 09/12/17 Dextroamphetamine/Amphetamine [Adderall 7.5 mg Tablet] 15 mg PO BID 12/26/17 Sertraline HCl [Zoloft -] 50 mg PO DAILY 12/26/17 Divalproex Sodium [Divalproex Sodium ER] 500 mg PO BID #60 tab.er.24h 12/31/17 - Diagnosis (1) Opioid dependence on agonist therapy Status: Acute (2) Sedative/hypnotic withdrawal without complication Status: Acute (3) Cocaine dependence Status: Chronic Qualifiers: Substance use status: uncomplicated Qualified Code(s): F14.20 - Cocaine dependence, uncomplicated (4) Nicotine dependence Status: Chronic Qualifiers: Nicotine product type: cigarettes Substance use status: in withdrawal Qualified Code(s): F17.213 - Nicotine dependence, cigarettes, with withdrawal (5) PCP dependence Status: Chronic (6) Seizure disorder Status: Chronic - AMA Did Patient Leave Against Medical Advice: No
== END 2017-12-31 13:17 | disposition home or self-care (01) | DRG 773 ==
LOC: YASAS 12:28 → Y3N 17:58
PROC: HZ2ZZZZ Detoxification Services for Substance Abuse Treatment (ICD-10-PCS; principal; 2017-12-26)
DX: F13.230 Sedative, hypnotic or anxiolytic dependence with withdrawal, uncomplicated (principal); F11.20 Opioid dependence, uncomplicated; F14.20 Cocaine dependence, uncomplicated; F16.20 Hallucinogen dependence, uncomplicated; F17.213 Nicotine dependence, cigarettes, with withdrawal; F25.9 Schizoaffective disorder, unspecified; F90.9 Attention-deficit hyperactivity disorder, unspecified type; F43.10 Post-traumatic stress disorder, unspecified; G47.00 Insomnia, unspecified; G40.909 Epilepsy, unspecified, not intractable, without status epilepticus; M54.2 Cervicalgia; M54.9 Dorsalgia, unspecified; R82.90 Unspecified abnormal findings in urine; R79.89 Other specified abnormal findings of blood chemistry; Z91.5 Personal history of self-harm
CPT/HCPCS: 36415; 80053; 81003; 81015; 85027; 86593; 93005; 93010

== ENCOUNTER 2018-06-26 12:29 | Inpatient (IN) | payer OTHER ==
[2018-06-26 13:03] VITALS: BMI 29.6
--- NOTE | 2018-06-26 14:23 | HP ---
CIWA Score Nausea/Vomitin Muscle Tremors: 2 Anxiety: 2 Agitation: 2 Paroxysmal Sweats: 1-Minimal Palms Moist Orientation: 0-Oriented Tacttile Disturbances: 1-Very Mild Itch/Numbness Auditory Disturbances: 1-Very Mild Visual Disturbances: 0-None Headache: 2-Mild CIWA-Ar Total Score: 13 - Admission Criteria OASAS Guidelines: Admission for Medically Managed Detox: Requires at least one of the followin. CIWA greater than 12 2. Seizures within the past 24 hours 3. Delirium tremens within the past 24 hours 4. Hallucinations within the past 24 hours 5. Acute intervention needed for co occurring medical disorder 6. Acute intervention needed for co occurring psychiatric disorder 7. Severe withdrawal that cannot be handled at a lower level of care (continued vomiting, continued diarrhea, abnormal vital signs) requiring intravenous medication and/or fluids 8. Patient presents the following: CIWA greater than 12 Admission Criteria Met: Admission criteria met Admission ROS S - [facility] Chief Complaint: i need help to come in for detox,from xanax and klonopin,heroin abused,mmtp 80 mgs/day last medicated today multiple admissions in the past,last detox 12/1217 to 12/31/17 [facility] nicotine dependence 1o cigarette weight loss ptsd,adhd no med,last 4 months epilepsy since age of 10,on depakote longest sobriety 4 months Allergies/Adverse Reactions: Allergies Allergy/AdvReac Type Severity Reaction Status Date / Time Barbiturates Allergy Severe Swelling Verified 06/26/18 14:17 Fish Containing Products Allergy Severe Hives Verified 06/26/18 14:17 History of Present Illness: this 27 years old male with xanax,klonopin dependence,heroin abused,on mmtp 80 mgs/day,last medicatred today, epilepsy on depakote,non compliance please see chief complaint Exam Limitations: No Limitations - Ebola screening Have you traveled outside of the country in the last 21 days: No Have you had contact with anyone from an Ebola affected area: No Have you been sick,other than usual withdrawal symptoms: No - Review of Systems Constitutional: Loss of Appetite, Malaise, Night Sweats, Changes in sleep, Weakness, Unintentional Wgt. Loss EENT: reports: Tearing, Nose Congestion Respiratory: reports: No Symptoms reported, Other (asthmatic bronchitis) Cardiac: reports: No Symptoms Reported GI: reports: Nausea, Poor Appetite, Abdominal cramping : reports: No Symptoms Reported Musculoskeletal: reports: Back Pain, Muscle Pain Integumentary: reports: Dryness Neuro: reports: Headache, Tremors Endocrine: reports: No Symptoms Reported Hematology: reports: No Symptoms Reported Psychiatric: reports: No Sypmtoms Reported, Judgement Intact, Mood/Affect Appropiate, Orientated x3, Anxious, Depressed, other (insomnia ptsd adha) Patient History - Patient Medical History Hx Anemia: No Hx Asthma: Yes (asthmatic bronchitis) Hx Chronic Obstructive Pulmonary Disease (COPD): No Hx Cancer: No Hx Cardiac Disorders: No Hx Congestive Heart Failure: No Hx Hypertension: No Hx Hypercholesterolemia: No Hx Pacemaker: No HX Cerebrovascular Accident: No Hx Seizures: Yes (pt has a hx of seizures last 6 months ago on Depakote.) Hx Dementia: No Hx Diabetes: No Hx Gastrointestinal Disorders: No Hx Liver Disease: No Hx Genitourinary Disorders: No Hx Sexually Transmitted Disorders: No Hx Renal Disease (ESRD): No Hx Thyroid Disease: No Hx Human Immunodeficiency Virus (HIV): No Hx Hepatitis C: No (neg) Hx Depression: Yes (anxiety) Hx Suicide Attempt: No Hx Bipolar Disorder: Yes Hx Schizophrenia: No Other Medical History: no suicidal,no homicidal,adhd,ptsd - Patient Surgical History Past Surgical History: No Hx Neurologic Surgery: No Hx Cataract Extraction: No Hx Cardiac Surgery: No Hx Lung Surgery: No Hx Breast Surgery: No Hx Breast Biopsy: No Hx Abdominal Surgery: No Hx Appendectomy: No Hx Cholecystectomy: No Hx Genitourinary Surgery: No Hx Section: No Hx Orthopedic Surgery: No Anesthesia Reaction: No - PPD History Previous Implant?: Yes Implanted On Prior [facility] Admission?: Yes Date: 01/11/17 Results: 0 mm PPD to be Administered?: Yes - Smoking Cessation Smoking history: Current every day smoker Have you smoked in the past 12 months: Yes Aproximately how many cigarettes per day: 10 Cigars Per Day: 0 Hx Chewing Tobacco Use: No Initiated information on smoking cessation: Yes 'Breaking Loose' booklet given: 06/26/18 - Substance & Tx. History Hx Alcohol Use: No Hx Substance Use: Yes Substance Use Type: Cocaine, Heroin, Tranquilizers - Substances Abused Benzodiazepine (Klonopin) Route: Oral Frequency: Daily Amount used: 10MG Age of first use: 14 Date of Last Use: 06/24/18 Alprazolam (Xanax) Route: Oral Frequency: Daily Amount used: 4MG Age of first use: 14 Date of Last Use: 06/24/18 Cocaine Route: Smoking Frequency: Daily Amount used: $50 Age of first use: 16 Date of Last Use: 06/25/18 Heroin Route: Inhalation Frequency: Daily Amount used: 3 BAGS Age of first use: 16 Date of Last Use: 06/25/18 Family Disease History - Family Disease History Family Disease History: Diabetes: Mother (mental disorder), Heart Disease: Grandparent, CA: Grandparent, Other: Mother Admission Physical Exam S - Vital Signs Vital Signs: Vital Signs - 24 hr 06/26/18 13:00 Temperature 96.5 F L Pulse Rate 70 Respiratory 18 Rate Blood Pressure 122/68 - Physical General Appearance: Yes: Moderate Distress, Tremorous, Irritable, Sweating, Anxious HEENTM: Yes: Normal ENT Inspection, MARIE, Pharynx Normal Respiratory: Yes: No Respiratory Distress, Wheezing Neck: Yes: Within Normal Limits, Supple, Trachea in good position Breast: Yes: Breast Exam Deferred Cardiology: Yes: Within Normal Limits, Regular Rhythm, Regular Rate, S1, S2 Abdominal: Yes: Within Normal Limits, Normal Bowel Sounds, Non Tender, Soft Genitourinary: Yes: Within Normal Limits Back: Yes: Muscle Spasm Musculoskeletal: Yes: Back pain, Muscle Pain Extremities: Yes: Tremors Neurological: Yes: 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 NML intact, Alert, Motor Strength 5/5 Integumentary: Yes: Dry Lymphatic: Yes: Within Normal Limits - Diagnostic (1) Sedative/hypnotic withdrawal without complication Current Visit: Yes Status: Acute (2) ADHD (attention deficit hyperactivity disorder) Current Visit: No Status: Chronic Qualifiers: Attention deficit-hyperactivity disorder type: unspecified Qualified Code(s ): F90.9 - Attention-deficit hyperactivity disorder, unspecified type (3) Cocaine dependence Current Visit: Yes Status: Chronic Qualifiers: Substance use status: uncomplicated Qualified Code(s): F14.20 - Cocaine dependence, uncomplicated (4) Nicotine dependence Current Visit: No Status: Chronic Qualifiers: Nicotine product type: cigarettes Substance use status: in withdrawal Qualified Code(s): F17.213 - Nicotine dependence, cigarettes, with withdrawal (5) PTSD (post-traumatic stress disorder) Current Visit: Yes Status: Chronic Comment: As per history.No symptoms elicited in this session. (6) Seizure disorder Current Visit: No Status: Chronic (7) Epileptic Current Visit: No Status: Suspected Qualifiers: Epilepsy type: unspecified Intractability: not intractable Status epilepticus: without status epilepticus Qualified Code(s): G40.909 - Epilepsy , unspecified, not intractable, without status epilepticus (8) Opioid dependence on agonist therapy Current Visit: No Status: Acute Cleared for Admission [facility] - Detox or Rehab [facility] Level of Care: Medically Managed Detox Regimen/Protocol: Valium [facility] Breath Alcohol Content Breath Alcohol Content: 0 Urine Drug Screen - Results Drug Screen Negative: No Urine Drug Screen Results: ANABEL-Cocaine, OPI-Opiates, MTD-Methadone Inpatient Rehab Admission - Rehab Decision to Admit Inpatient rehab admission?: No
[2018-06-26] MEDS ORDERED: MAGNESIUM HYDROX 2400MG/30ML ORAL SUSPENSION 30 ML CUP PO PRN (14:51)
[2018-06-26] MEDS ORDERED: ACETAMINOPHEN 325 MG TABLET (FP) PO PRN (14:51)
[2018-06-26] MEDS ORDERED: MENTHOL/PHENOL 1 EACH UD MM PRN (14:51)
[2018-06-26] MEDS ORDERED: METHOCARBAMOL 500 MG TABLET PO PRN (14:51)
[2018-06-26] MEDS ORDERED: MAGNESIUM CITRATE 300 ML BOTTLE PO PRN (14:51)
[2018-06-26] MEDS ORDERED: MELATONIN 5 MG TABLETS PO PRN (14:51)
[2018-06-26] MEDS: NICOTINE 21 MG/24 HOURS TOPICAL PATCH TD SCH (17:03)
[2018-06-26] MEDS: diazePAM 5 MG TABLET PO PRN (17:05)
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
[2018-06-26] MEDS ORDERED: DIVALPROEX NA *ER* EXTEND REL 500 MG TABLET.SA (FP) PO SCH (22:00)
[2018-06-26] MEDS: GABAPENTIN 400 MG CAPSULE (FP) PO SCH (22:03)
[2018-06-26] MEDS: diazePAM 5 MG TABLET PO SCH (22:04)
[2018-06-26] MEDS: THIAMINE HCL 100 MG TABLET (FP) PO SCH (22:04)
[2018-06-26] MEDS: DIVALPROEX NA *ER* EXTEND REL 500 MG TABLET.SA (FP) PO SCH (22:05)
[2018-06-26] MEDS: hydrOXYzine PAMOATE 25 MG CAPSULE (FP) PO PRN (22:06)
[2018-06-27] MEDS: diazePAM 5 MG TABLET PO SCH ×3 (05:59→21:58)
[2018-06-27] MEDS: METHADONE HCL 40 MG DISPERSABLE TABLET PO SCH (08:54)
[2018-06-27] MEDS: MAG HYDROX/AL HYDROX/SIMETH 30 ML UNIT-DOSE CUP PO PRN (08:55)
[2018-06-27 10:15] LABS: HEMATOCRIT 43.8 % (35.4-49); MCH 30.2 pg (25.7-33.7); MCHC 34.3 g/dl (32.0-35.9); MEAN CELL VOLUME 87.9 fl (80-96); MEAN PLT VOLUME 9.7 fl (7.5-11.1); PLATELET COUNT 260 K/MM3 (134-434); RBC 4.98 M/mm3 (4.00-5.60); RDW 14.6 % (11.9-15.9); WHITE BLOOD COUNT 6.9 K/mm3 (4.0-10.0)
[2018-06-27] MEDS: PRENATAL VITAMINS W/ FOLIC ACID TABLET (FP) PO SCH (10:21)
[2018-06-27] MEDS: NICOTINE 21 MG/24 HOURS TOPICAL PATCH TD SCH (10:21)
[2018-06-27] MEDS: GABAPENTIN 400 MG CAPSULE (FP) PO SCH ×2 (10:21→21:57)
[2018-06-27] MEDS: diazePAM 5 MG TABLET PO PRN ×2 (10:23→19:14)
[2018-06-27] MEDS ORDERED: diphenhydrAMINE HCL 25 MG CAPSULE (FP) PO ONE (10:45)
[2018-06-27 11:02] LABS: ALBUMIN 4.2 g/dl (3.4-5.0); ALK PHOS 98 U/L (45-117); ANION GAP 6 MMOL/L (8-16); BILIRUBIN,TOTAL 0.3 mg/dL (0.2-1); BLOOD UREA NITROGEN 16 mg/dL (7-18); CALCIUM 9.2 mg/dL (8.5-10.1); CHLORIDE 106 mmol/L (98-107); CO2 29 mmol/L (21-32); CREATININE 0.9 mg/dL (0.55-1.3); GLUCOSE,RANDOM 64 mg/dL (74-106); POTASSIUM 4.6 mmol/L (3.5-5.1); SGOT/AST 10 U/L (15-37); SGPT/ALT 18 U/L (13-61); SODIUM 141 mmol/L (136-145)
--- NOTE | 2018-06-27 12:23 | PN ---
S CIWA - CIWA Score Nausea/Vomitin-No Nausea/No Vomiting Muscle Tremors: 4-Moderate,w/Arms Extend Anxiety: 4-Mod. Anxious/Guarded Agitation: 4-Moderately Restless Paroxysmal Sweats: 3 Orientation: 0-Oriented Tacttile Disturbances: 0-None Auditory Disturbances: 0-None Visual Disturbances: 0-None Headache: 0-None Present CIWA-Ar Total Score: 15 BHS Progress Note (SOAP) Subjective: sweats shakes itchy bumps on my legs anxiety interrupted sleep Objective: 06/27/18 12:20 Vital Signs Temperature 96.4 F L 06/27/18 09:47 Pulse Rate 73 06/27/18 09:47 Respiratory Rate 16 06/27/18 09:47 Blood Pressure 113/61 06/27/18 09:47 O2 Sat by Pulse Oximetry (%) Laboratory Tests 06/27/18 06/27/18 06:00 06:00 WBC 6.9 RBC 4.98 Hgb 15.0 Hct 43.8 MCV 87.9 MCH 30.2 MCHC 34.3 RDW 14.6 D Plt Count 260 MPV 9.7 Sodium 141 Potassium 4.6 Chloride 106 Carbon Dioxide 29 Anion Gap 6 L BUN 16 Creatinine 0.9 Creat Clearance w eGFR > 60 Random Glucose 64 L Calcium 9.2 Total Bilirubin 0.3 AST 10 L ALT 18 Alkaline Phosphatase 98 Total Protein 8.0 Albumin 4.2 awake/alert ambulating no acute distress Assessment: 06/27/18 12:21 withdrawal sx red bumps to thighs of both legs noted. appears like some kind of rash/bites. asked pt if he has had any bug bites infestation at his home; pt denies. assessed rest of body no other bumps noted. will order medicated cream Plan: continue detox increase fluids lidex cream ordered benadryl 25mg x one ordered will reassess for any improvement.
[2018-06-27] MEDS: FLUOCINONIDE 0.05% CREAM (15 GM TUBE) TP SCH ×3 (13:20→21:57)
[2018-06-27] MEDS: DIVALPROEX NA *ER* EXTEND REL 500 MG TABLET.SA (FP) PO SCH (21:57)
[2018-06-27] MEDS: THIAMINE HCL 100 MG TABLET (FP) PO SCH (21:58)
[2018-06-27] MEDS: hydrOXYzine PAMOATE 25 MG CAPSULE (FP) PO PRN (21:59)
[2018-06-28] MEDS: ACETAMINOPHEN 325 MG TABLET (FP) PO PRN (01:16)
[2018-06-28] MEDS: diazePAM 5 MG TABLET PO PRN ×2 (02:30→15:23)
[2018-06-28] MEDS: METHADONE HCL 40 MG DISPERSABLE TABLET PO SCH (05:39)
[2018-06-28] MEDS: MAG HYDROX/AL HYDROX/SIMETH 30 ML UNIT-DOSE CUP PO PRN ×2 (07:26→14:09)
[2018-06-28] MEDS: GABAPENTIN 400 MG CAPSULE (FP) PO SCH ×2 (10:10→22:22)
[2018-06-28] MEDS: PRENATAL VITAMINS W/ FOLIC ACID TABLET (FP) PO SCH (10:10)
[2018-06-28] MEDS: diazePAM 5 MG TABLET PO SCH ×2 (10:10→22:22)
[2018-06-28] MEDS: FLUOCINONIDE 0.05% CREAM (15 GM TUBE) TP SCH ×4 (10:10→22:22)
[2018-06-28] MEDS: NICOTINE 21 MG/24 HOURS TOPICAL PATCH TD SCH (10:11)
[2018-06-28] MEDS: IBUPROFEN 400 MG TABLET (FP) PO PRN ×2 (10:11→19:43)
--- NOTE | 2018-06-28 13:18 | PN ---
S CIWA - CIWA Score Nausea/Vomitin-No Nausea/No Vomiting Muscle Tremors: 3 Anxiety: 3 Agitation: 2 Paroxysmal Sweats: 1-Minimal Palms Moist Orientation: 0-Oriented Tacttile Disturbances: 0-None Auditory Disturbances: 0-None Visual Disturbances: 0-None Headache: 0-None Present CIWA-Ar Total Score: 9 BHS Progress Note (SOAP) Subjective: sweats anxiety the bumps on my body are healing better the itchiness is less Objective: 06/28/18 13:18 Vital Signs Temperature 98.1 F 06/28/18 09:22 Pulse Rate 85 06/28/18 09:22 Respiratory Rate 18 06/28/18 09:22 Blood Pressure 133/63 06/28/18 09:22 O2 Sat by Pulse Oximetry (%) Laboratory Tests 06/27/18 06/27/18 06/27/18 06:00 06:00 06:00 WBC 6.9 RBC 4.98 Hgb 15.0 Hct 43.8 MCV 87.9 MCH 30.2 MCHC 34.3 RDW 14.6 D Plt Count 260 MPV 9.7 Sodium 141 Potassium 4.6 Chloride 106 Carbon Dioxide 29 Anion Gap 6 L BUN 16 Creatinine 0.9 Creat Clearance w eGFR > 60 Random Glucose 64 L Calcium 9.2 Total Bilirubin 0.3 AST 10 L ALT 18 Alkaline Phosphatase 98 Total Protein 8.0 Albumin 4.2 RPR Titer Nonreactive aaox3 ambulating no acute distress Assessment: 06/28/18 13:18 withdrawal sx Plan: continue detox increase fluids continue with medicated cream d/c in am
[2018-06-28] MEDS ORDERED: FLUOCINONIDE 0.05% CREAM (15 GM TUBE) TP SCH (14:45)
[2018-06-28] MEDS: hydrOXYzine PAMOATE 25 MG CAPSULE (FP) PO PRN (19:43)
[2018-06-28] MEDS: BISMUTH SUBSALICYLATE 524 MG/30 ML UD PO PRN ×2 (19:44→21:11)
[2018-06-28] MEDS: DIVALPROEX NA *ER* EXTEND REL 500 MG TABLET.SA (FP) PO SCH (22:22)
[2018-06-28] MEDS: THIAMINE HCL 100 MG TABLET (FP) PO SCH (22:33)
[2018-06-29] MEDS: ACETAMINOPHEN 325 MG TABLET (FP) PO PRN (04:06)
[2018-06-29] MEDS: METHADONE HCL 40 MG DISPERSABLE TABLET PO SCH (05:26)
[2018-06-29] MEDS ORDERED: diazePAM 5 MG TABLET PO SCH (06:00)
[2018-06-29 07:44] VITALS: BP 145/78; PULSE 84; TEMP 98.1
--- NOTE | 2018-06-29 13:43 | DS ---
[facility] Detox Discharge Summary Admission Date: 06/26/18 Discharge Date: 06/29/18 - History Present History: Cannabis Dependence, Cocaine Dependence, Opioid Dependence, Sedative Dependence, MMTP Pertinent Past History: Seizure disorder - Physical Exam Results Vital Signs: Vital Signs Temperature 98.1 F 06/29/18 07:44 Pulse Rate 84 06/29/18 07:44 Respiratory Rate 18 06/29/18 07:44 Blood Pressure 145/78 06/29/18 07:44 O2 Sat by Pulse Oximetry (%) Pertinent Admission Physical Exam Findings: Withdrawal sx Laboratory Last Values WBC 6.9 K/mm3 (4.0-10.0) 06/27/18 06:00 RBC 4.98 M/mm3 (4.00-5.60) 06/27/18 06:00 Hgb 15.0 GM/dL (11.7-16.9) 06/27/18 06:00 Hct 43.8 % (35.4-49) 06/27/18 06:00 MCV 87.9 fl (80-96) 06/27/18 06:00 MCH 30.2 pg (25.7-33.7) 06/27/18 06:00 MCHC 34.3 g/dl (32.0-35.9) 06/27/18 06:00 RDW 14.6 % (11.9-15.9) D 06/27/18 06:00 Plt Count 260 K/MM3 (134-434) 06/27/18 06:00 MPV 9.7 fl (7.5-11.1) 06/27/18 06:00 Sodium 141 mmol/L (136-145) 06/27/18 06:00 Potassium 4.6 mmol/L (3.5-5.1) 06/27/18 06:00 Chloride 106 mmol/L (98-107) 06/27/18 06:00 Carbon Dioxide 29 mmol/L (21-32) 06/27/18 06:00 Anion Gap 6 MMOL/L (8-16) L 06/27/18 06:00 BUN 16 mg/dL (7-18) 06/27/18 06:00 Creatinine 0.9 mg/dL (0.55-1.3) 06/27/18 06:00 Creat Clearance w eGFR > 60 (>60) 06/27/18 06:00 Random Glucose 64 mg/dL (74-106) L 06/27/18 06:00 Calcium 9.2 mg/dL (8.5-10.1) 06/27/18 06:00 Total Bilirubin 0.3 mg/dL (0.2-1) 06/27/18 06:00 AST 10 U/L (15-37) L 06/27/18 06:00 ALT 18 U/L (13-61) 06/27/18 06:00 Alkaline Phosphatase 98 U/L (45-117) 06/27/18 06:00 Total Protein 8.0 g/dl (6.4-8.2) 06/27/18 06:00 Albumin 4.2 g/dl (3.4-5.0) 06/27/18 06:00 RPR Titer Nonreactive (NONREACTIVE) 06/27/18 06:00 Labs noted - Treatment Hospital Course: Detox Protocol Followed, Detoxed Safely, Responded well, Discharged Condition Good - Medication Discharge Medications: Ambulatory Orders Gabapentin 800 mg PO BID 09/12/17 Dextroamphetamine/Amphetamine [Adderall 7.5 mg Tablet] 15 mg PO BID 12/26/17 Divalproex Sodium [Divalproex Sodium ER] 500 mg PO BID #60 tab.er.24h 12/31/17 Methadone [Dolophine -] 80 mg PO DAILY 06/26/18 - Diagnosis (1) Chronic neck and back pain Status: Acute (2) Opioid dependence on agonist therapy Status: Acute (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 Status: Acute (4) Substance induced mood disorder Status: Acute (5) ADHD (attention deficit hyperactivity disorder) Status: Chronic Qualifiers: Attention deficit-hyperactivity disorder type: unspecified Qualified Code(s ): F90.9 - Attention-deficit hyperactivity disorder, unspecified type (6) Nicotine dependence Status: Chronic Qualifiers: Nicotine product type: cigarettes Substance use status: in withdrawal Qualified Code(s): F17.213 - Nicotine dependence, cigarettes, with withdrawal (7) Seizure disorder Status: Chronic - AMA Did Patient Leave Against Medical Advice: No
== END 2018-06-29 09:24 | disposition home or self-care (01) | DRG 773 ==
LOC: YASAS 12:29 → Y6N 15:05
PROVIDERS: ADMIT Surgery; ATTEND Surgery
PROC: HZ2ZZZZ Detoxification Services for Substance Abuse Treatment (ICD-10-PCS; principal; 2018-06-26)
DX: F13.230 Sedative, hypnotic or anxiolytic dependence with withdrawal, uncomplicated (principal); F14.20 Cocaine dependence, uncomplicated; F11.20 Opioid dependence, uncomplicated; F17.213 Nicotine dependence, cigarettes, with withdrawal; F19.24 Other psychoactive substance dependence with psychoactive substance-induced mood disorder; F90.9 Attention-deficit hyperactivity disorder, unspecified type; F43.10 Post-traumatic stress disorder, unspecified; F41.8 Other specified anxiety disorders; F32.9 Major depressive disorder, single episode, unspecified; M54.2 Cervicalgia; M54.9 Dorsalgia, unspecified; G89.29 Other chronic pain; Z86.59 Personal history of other mental and behavioral disorders; Z86.69 Personal history of other diseases of the nervous system and sense organs; R63.4 Abnormal weight loss; Z68.29 Body mass index [BMI] 29.0-29.9, adult
CPT/HCPCS: 36415; 80053; 85027; 86593